=== PATIENT | male | born 1965 | race African-American/Black ===

== ENCOUNTER 2019-08-02 14:35 | Observation (INO) | payer OTHER ==
--- NOTE | 2019-08-02 16:51 | ER Document Report ---
ED Dizziness/Weakness - General Chief Complaint: Near Syncope Stated Complaint: POSSIBLE SYNCOPE Time Seen by Provider: 08/02/19 16:31 Primary Care Provider: JOSE ANGEL,ROGER [Primary Care Provider] - Follow up as needed Notes: Patient is a 54-year-old male with a history of A. fib/a flutter who presents to the emergency department with a chief complaint of syncope. Patient reports that he was headed to his doctor's appointment on Wednesday which was 2 days ago when he passed out. He states he did see his child welfare manager right afterwards who scheduled an outpatient cardioversion due to a flutter. He states yesterday at [facility] he had his cardioversion performed. Patient reports on the way home back to [place] he stopped at a gas station and had a syncopal episode with loss of consciousness. He states that the EMS did transport him to a hospital where he was seen and discharged. Patient reports they did decrease his metoprolol dosage which he did change today. Patient reports once he got home he had another syncopal episode with the loss of consciousness. Patient reports that he is unsure if he hit his head but he woke up on the floor. Patient is on Eliquis. Patient reports he is also having low back pain from his fall on Wednesday. Patient reports overall he has had some shortness of breath over the past few months. [facility] to be [facility]. Patient reports he does feel slightly winded when he walks. TRAVEL OUTSIDE OF THE [place] IN LAST 30 DAYS: No - Related Data Allergies/Adverse Reactions: No Known Allergies Allergy (Unverified 11/05/15 13:29) Past Medical History - General Information source: Patient - Social History Smoking Status: Never Smoker Frequency of alcohol use: None Drug Abuse: None Lives with: Family Family History: None Patient has suicidal ideation: No Patient has homicidal ideation: No - Past Medical History Cardiac Medical History: Reports: Hx Atrial Fibrillation, Hx Hypertension Denies: Hx Coronary Artery Disease, Hx Heart Attack Pulmonary Medical History: Reports: None Denies: Hx Asthma, Hx Bronchitis, Hx COPD, Hx Pneumonia EENT Medical History: Reports: None Neurological Medical History: Reports: None. Denies: Hx Cerebrovascular Accident, Hx Seizures Endocrine Medical History: Reports: None Renal/ Medical History: Reports: None Malignancy Medical History: Reports None GI Medical History: Reports: None Musculoskeletal Medical History: Reports None, Denies Hx Arthritis Skin Medical History: Reports None Psychiatric Medical History: Reports: None Traumatic Medical History: Reports: None Infectious Medical History: Reports: None Surgical Hx: Negative - Immunizations Hx Diphtheria, Pertussis, Tetanus Vaccination: No Review of Systems - Review of Systems Constitutional: No symptoms reported EENT: No symptoms reported Cardiovascular: See HPI Respiratory: See HPI Gastrointestinal: No symptoms reported Genitourinary: No symptoms reported Male Genitourinary: No symptoms reported Musculoskeletal: See HPI Skin: No symptoms reported Hematologic/Lymphatic: No symptoms reported Neurological/Psychological: No symptoms reported Physical Exam - Notes Notes: GENERAL: Well-appearing, well-nourished and in no acute distress. HEAD: Atraumatic, normocephalic. EYES: Pupils equal round and reactive to light, 4mm bilaterally, extraocular movements intact, sclera anicteric, conjunctiva are normal. ENT: TMs normal, nares patent, oropharynx clear without exudates. Moist mucous membranes. NECK: Normal range of motion, supple without lymphadenopathy or JVD. LUNGS: Breath sounds clear to auscultation bilaterally and equal. No wheezes rales or rhonchi. HEART: Irregular rhythm with controlled rate without murmurs, rubs or gallops. ABDOMEN: Soft, nontender, normoactive bowel sounds. No guarding, no rebound. No masses appreciated. BACK: No cervical, thoracic, midline tenderness. Patient does have lumbar midline tenderness with palpation. There is no ecchymosis or abrasions noted to the back. No saddle anesthesia, normal distal neurovascular exam. GENITOURINARY: Deferred. EXTREMITIES: Normal range of motion, no pitting or edema. No clubbing or cyanosis. NEUROLOGICAL: Cranial nerves II through XII grossly intact. Normal speech, normal gait. PSYCH: Normal mood, normal affect. SKIN: Warm, Dry, normal turgor, no rashes or lesions noted. Course - Re-evaluation Re-evalutation: 08/02/19 16:50 Patient's syncope and multiple falls over the past few days are quite concerning. Will obtain basic labs including a troponin. Will obtain a CT of the head as the patient did report multiple falls with a loss of consciousness and is on Eliquis. Plan is to admit the patient to the hospital for observation overnight due to the syncope. Patient heart rate in the 70s at this time. Patient is Sinus Rhythm on the monitor with PAC's. 08/02/19 17:22 Chest x-ray did show borderline cardiomegaly without evidence of failure, no effusion, no consolidation. X-ray of the lumbar spine negative for any acute fracture. Patient CT of the head was also negative. 08/02/19 18:06 Patient's troponin was essentially negative. Will admit the patient for multiple episodes of syncope with the loss of consciousness. 08/02/19 18:10 I did speak with ZAINA Peoples with our hospitalist group who would like to consult with [facility] as the patient states having his cardioversion there yesterday. I did speak with [facility] who will page the on- call child welfare manager for a consult. 08/02/19 18:[address] Mark with cardiology at [facility] to discuss patient case. He states that from my report patient could be admitted at [facility] over night for observation and then follow up with outpatient cardiology to wear a 30 day holter monitor. 18:[address] [facility] [address] Harpreet Mesa, who does agree to consult, and does agree that the patient should be observed over night. I spoke with Arian MAHAJAN, who states to call Dr. Wilburn at 1910 for admit as it is shift change. 08/02/19 19:04 Dr. Harpreet Mesa at the bedside with patient for evaluation - he is our injection molding engineer child welfare manager. 08/02/19 19:[address] speak with [address]. Emmett Wilburn, hospitalist who accepts admission. - Laboratory Result Diagrams: 08/02/19 15:40 08/02/19 15:40 Laboratory results interpreted by me: 08/02/19 08/02/19 15:40 15:40 Hgb 12.4 L Hct 36.5 L RDW 16.7 H Eos % (Auto) 7.8 H AST 80 H - Diagnostic Test Radiology reviewed: Reports reviewed Radiology results interpreted by me: 08/02/19 17:22 Chest X-Ray 08/02/19 16:33 IMPRESSION: Borderline cardiomegaly without pulmonary edema. Head CT 08/02/19 16:46 IMPRESSION: NORMAL BRAIN CT WITHOUT CONTRAST. EVIDENCE OF ACUTE STROKE: NO. Lumbar Spine X-Ray 01/08/20 16:46 IMPRESSION: NORMAL 5 VIEW LUMBAR SPINE. Discharge - Discharge Clinical Impression: Syncope Qualifiers: Syncope type: unspecified Qualified Code(s): R55 - Syncope and collapse Condition: Stable Disposition: ADMITTED OBSERVATION Unit Admitted: Telemetry [facility] [[facility] - Follow up as needed
--- NOTE | 2019-08-02 17:12 | RADIOLOGY REPORT (SQ) ---
EXAM DESCRIPTION: CT HEAD WITHOUT COMPLETED DATE/TIME: 08/02/2019 5:03 pm REASON FOR STUDY: syncope, fall, + LOC, on eliquis COMPARISON: None. TECHNIQUE: Axial images acquired through the brain without intravenous contrast. Images reviewed wi th bone, brain and subdural windows. Additional sagittal and coronal reconstructions were generated. Images stored on PACS. All CT scanners at this facility use dose modulation, iterative reconstruction, and/or weight based d osing when appropriate to reduce radiation dose to as low as reasonably achievable (ALARA). [facility]: Dose Right [facility]: CareDose [facility]: Dose Right [facility]: Teradose 4D [facility]: [employer] RADIATION DOSE: CT Rad equipment meets quality standard of care and radiation dose reduction techniq ues were employed. CTDIvol: 53.2 mGy. DLP: 991 mGy-cm. mGy. LIMITATIONS: None. FINDINGS: VENTRICLES: Normal size and contour. CEREBRUM: No masses. No hemorrhage. No midline shift. No evidence for acute infarction. Normal gra y/white matter differentiation. No areas of low density in the white matter. CEREBELLUM: No masses. No hemorrhage. No alteration of density. No evidence for acute infarction. EXTRAAXIAL SPACES: No fluid collections. No masses. ORBITS AND GLOBE: No intra- or extraconal masses. Normal contour of globe without masses. CALVARIUM: No fracture. PARANASAL SINUSES: No fluid or mucosal thickening. SOFT TISSUES: No mass or hematoma. OTHER: No other significant finding. IMPRESSION: NORMAL BRAIN CT WITHOUT CONTRAST. EVIDENCE OF ACUTE STROKE: NO. COMMENT: Quality ID # [id number]: Final reports with documentation of one or more dose reduction techniques (e.g., Automated exposure control, adjustment of the mA and/or kV according to patient size, use of iterative reconstruction technique) TECHNICAL DOCUMENTATION: JOB ID: [id number] [email or web address]- All Rights Reserved Reading location - IP/workstation name: [email or web address]
--- NOTE | 2019-08-02 17:13 | RADIOLOGY REPORT (SQ) ---
EXAM DESCRIPTION: CHEST 2 VIEWS COMPLETED DATE/TIME: 08/02/2019 5:01 pm REASON FOR STUDY: syncope COMPARISON: None. EXAM PARAMETERS: NUMBER OF VIEWS: two views TECHNIQUE: Digital Frontal and Lateral radiographic views of the chest acquired. RADIATION DOSE: NA LIMITATIONS: none FINDINGS: LUNGS AND PLEURA: No opacities, masses or pneumothorax. No pleural effusion. MEDIASTINUM AND HILAR STRUCTURES: No masses or contour abnormalities. HEART AND VASCULAR STRUCTURES: Heart size is borderline. There is no pulmonary edema. BONES: No acute findings. HARDWARE: None in the chest. OTHER: No other significant finding. IMPRESSION: Borderline cardiomegaly without pulmonary edema. TECHNICAL DOCUMENTATION: JOB ID: [id number] [email or web address]- All Rights Reserved Reading location - IP/workstation name: [email or web address]
--- NOTE | 2019-08-02 17:14 | RADIOLOGY REPORT (SQ) ---
EXAM DESCRIPTION: L SPINE WHOLE COMPLETED DATE/TIME: 08/02/2019 5:01 pm REASON FOR STUDY: syncope, fall, low back pain COMPARISON: None. NUMBER OF VIEWS: Five views including obliques. TECHNIQUE: AP, lateral, oblique, and sacral radiographic images acquired of the lumbar spine. LIMITATIONS: None. FINDINGS: MINERALIZATION: Normal. SEGMENTATION: Normal. No transitional anatomy. ALIGNMENT: Normal. VERTEBRAE: Maintained height. No fracture or worrisome bone lesion. DISCS: Preserved height. No significant osteophytes or end plate irregularity. POSTERIOR ELEMENTS: Pedicles and facets are intact. No pars defect or posterior arch defects. HARDWARE: None in the spine. PARASPINAL SOFT TISSUES: Normal. PELVIS: Intact as visualized. No fractures or worrisome bone lesions. SI joints intact. OTHER: No other significant finding. IMPRESSION: NORMAL 5 VIEW LUMBAR SPINE. TECHNICAL DOCUMENTATION: JOB ID: [id number] [employer]- All Rights Reserved Reading location - IP/workstation name: [email or web address]
[2019-08-02 17:41] LABS: ALBUMIN 3.9 g/dL (3.5-5.0); ALKALINE PHOSPHATASE 93 U/L (38-126); ANION GAP 8 (5-19); ASPARTATE AMINO TRANSFERASE 80 U/L (17-59); BILIRUBIN,DIRECT 0.4 mg/dL (0.0-0.4); BILIRUBIN,TOTAL 0.9 mg/dL (0.2-1.3); BLOOD UREA NITROGEN 16 mg/dL (7-20); CALCIUM 9.8 mg/dL (8.4-10.2); CARBON DIOXIDE 28 mmol/L (22-30); CHLORIDE 103 mmol/L (98-107); GLUCOSE 103 mg/dL (75-110); POTASSIUM 4.3 mmol/L (3.6-5.0); TOTAL PROTEIN 7.4 g/dL (6.3-8.2)
[2019-08-02 17:45] LABS: ABSOLUTE EOSINOPHILS # (AUTO) 0.6 10^3/uL (0.0-0.6); ABSOLUTE LYMPHOCYTES (AUTO) 2.5 10^3/uL (0.5-4.7); ABSOLUTE MONOCYTES (AUTO) 0.8 10^3/uL (0.1-1.4); ABSOLUTE NEUT (AUTO) 3.3 10^3/uL (1.7-8.2); BASOPHILS % (AUTO) 0.6 % (0-2); EOSINOPHILS % (AUTO) 7.8 % (0-6); HEMATOCRIT 36.5 % (37.9-51.0); HEMOGLOBIN 12.4 g/dL (13.5-17.0); LYMPHOCYTES % (AUTO) 34.7 % (13-45); MEAN CORPUSCULAR HGB CONC 33.9 g/dL (32.0-36.0); MEAN CORPUSCULAR VOLUME 80 fl (80-97); MONOCYTES % (AUTO) 10.6 % (3-13); PLATELET COUNT 287 10^3/uL (150-450); RED BLOOD COUNT 4.58 10^6/uL (4.35-5.55); RED CELL DISTRIBUTION WIDTH 16.7 % (11.5-14.0); SEGMENTED NEUTROPHILS % (AUTO) 46.3 % (42-78); TOTAL CELLS COUNTED % (AUTO) 100 %; WHITE BLOOD COUNT 7.2 10^3/uL (4.0-10.5)
--- NOTE | 2019-08-02 19:26 | PDOC CONSULTATION ---
Consultation Consult Date: 08/02/19 Provider Consulted: KELL FAITH Consult reason:: Syncope History of Present Illness Admission Date/PCP: [facility] Patient complains of: Syncope History of Present Illness: [facility] is a 54 year old male With medical history significant for atrial fibrillation. Patient reports that he had syncope on 07/31/2019. On 08/01/2019 patient had outpatient cardioversion at [facility]. He was discharged from the hospital. On his way back home when he was at a gas station with a friend he had another episode of syncope. He was transported to a different hospital. Evaluation there and tests were unremarkable and patient was discharged home. When he got back home patient had yet another episode of syncope. No trauma is reported. No residual effects were noted. Patient did not have any preceding symptoms. There is no report of chest fluttering chest pain or palpitation. Patient was evaluated in [facility] emergency room and appears to be doing well and is back to his usual self. There is no report of chest pain palpitations or dyspnea. Because of recurrent episodes of syncope cardiology opinion is requested and it is expected that patient will be observed overnight. Contact has been made with the system administrator at [facility] as well. Past Medical History Cardiac Medical History: Reports: Atrial Fibrillation, Hypertension Denies: Coronary Artery Disease, Myocardial Infarction Pulmonary Medical History: Reports: None Denies: Asthma, Bronchitis, Chronic Obstructive Pulmonary Disease (COPD), Pneumonia EENT Medical History: Reports: None Neurological Medical History: Reports: None Denies: Seizures Endocrine Medical History: Reports: None Renal/ Medical History: Reports: None Malignancy Medical History: Reports: None GI Medical History: Reports: None Musculoskeltal Medical History: Reports: None Denies: Arthritis Skin Medical History: Reports: None Psychiatric Medical History: Reports: None Traumatic Medical History: Reports: None Hematology: Denies: Anemia Infectious Medical History: Reports: None Social History Lives with: Family Smoking Status: Never Smoker Family History Family History: None, Reviewed & Not Pertinent Parental Family History Reviewed: No Children Family History Reviewed: NA Sibling(s) Family History Reviewed.: NA Medication/Allergy Home Medications: Amlodipine Besylate 5 mg PO Q12H 11/05/15 Hydralazine HCl [Apresoline 10 mg Tablet] 10 mg PO DAILY 11/05/15 Allergies/Adverse Reactions: No Known Allergies Allergy (Unverified 11/05/15 13:29) Review of Systems Cardiovascular: PRESENT: as per HPI Neurological: PRESENT: as per HPI, syncope Physical Exam Vital Signs: Intake & Output 08/01/19 08/02/19 08/03/19 06:59 06:59 06:59 Weight 98.7 kg General appearance: PRESENT: no acute distress, cooperative, well-developed Head exam: PRESENT: atraumatic, normocephalic Eye exam: PRESENT: EOMI Mouth exam: PRESENT: moist Respiratory exam: PRESENT: clear to auscultation [place], symmetrical, unlabored Cardiovascular exam: PRESENT: RRR, +S1, +S2 Pulses: PRESENT: normal radial pulses GI/Abdominal exam: PRESENT: soft Rectal exam: PRESENT: deferred Neurological exam: PRESENT: alert, awake, oriented to person, oriented to place, oriented to time, oriented to situation, CN II-XII grossly intact Psychiatric exam: PRESENT: appropriate affect Skin exam: PRESENT: dry, intact, normal color Results Laboratory Results: 08/02/19 15:40 08/02/19 15:40 08/02/19 08/02/19 15:40 15:40 WBC 7.2 RBC 4.58 Hgb 12.4 L Hct 36.5 L MCV 80 MCH 27.0 MCHC 33.9 RDW 16.7 H Plt Count 287 Seg Neutrophils % 46.3 Sodium 138.5 Potassium 4.3 Chloride 103 Carbon Dioxide 28 Anion Gap 8 BUN 16 Creatinine 1.09 Est GFR ( Amer) > 60 Glucose 103 Calcium 9.8 Total Bilirubin 0.9 AST 80 H Alkaline Phosphatase 93 Total Protein 7.4 Albumin 3.9 08/02/19 15:40 Troponin I 0.019 EKG Comments: Twelve-lead EKG was reviewed. There are some but sinus beats but there are also PACs with multiple P wave morphologies indicating a wandering atrial rhythm. Normal AV conduction, QTC is 485 ms. Telemetry shows sinus rhythm with PACs at approximately 80 bpm. Impressions: Chest X-Ray 08/02/19 16:33 IMPRESSION: Borderline cardiomegaly without pulmonary edema. Head CT 08/02/19 16:46 IMPRESSION: NORMAL BRAIN CT WITHOUT CONTRAST. EVIDENCE OF ACUTE STROKE: NO. Lumbar Spine X-Ray 08/02/19 16:46 IMPRESSION: NORMAL 5 VIEW LUMBAR SPINE. Status: Image reviewed by me Assessment & Plan - Diagnosis (1) Atrial fibrillation Plan: Patient is status post direct-current cardioversion yesterday. Presently maintaining sinus rhythm with PACs. Given recurrent episodes of syncope it would be reasonable to observe the patient on telemetry for the next 24 hours. Contact has been made with patient's system administrator and the plan is for a 30-day event monitor which is reasonable. Continue systemic anticoagulation with apixaban Continue metoprolol. Watch blood pressure (2) Syncope Qualifiers: Syncope type: unspecified Qualified Code(s): R55 - Syncope and collapse Plan: I will be reasonable to monitor the patient on telemetry for at least 24 hours to exclude an arrhythmic cause for syncope. Patient is status post cardioversion and is maintaining sinus rhythm with PACs. Continue systemic anticoagulation. 30-day event monitor is being planned by patient's system administrator
[2019-08-02] MEDS ORDERED: MORPHINE SULFATE 10 MG/ML INJ IV PRN ×3 (19:42)
[2019-08-02] MEDS ORDERED: MAGNESIUM HYDROXIDE SUSP 30 ML UDCUP PO PRN (19:42)
[2019-08-02] MEDS ORDERED: ACETAMINOPHEN 325 MG TABLET PO PRN (19:42)
[2019-08-02] MEDS ORDERED: MAG HYDROX/AL HYDROX/SIMETH SUSP 30 ML UDCUP PO PRN (19:42)
[2019-08-02] MEDS ORDERED: HYDRALAZINE HCL INJ/PF 20 MG/1 ML SDV IV PRN (19:42)
[2019-08-02] MEDS ORDERED: LORAZEPAM INJ 2 MG/1 ML VIAL IV PRN (19:43)
[2019-08-02] MEDS ORDERED: PROMETHAZINE HCL INJ 25 MG/1 ML VIAL IV PRN (19:44)
[2019-08-02 21:55] LABS: CREATINE KINASE MB 0.73 ng/mL (<4.55); TROPONIN I 0.024 ng/mL
[2019-08-02 22:00] LABS: FREE T3 3.75 pg/mL (2.77-5.27); FREE T4 (FREE THYROXINE) 1.38 ng/dL (0.78-2.19)
[2019-08-02] MEDS: APIXABAN 5 MG TABLET PO SCH (22:05)
[2019-08-02] MEDS: FAMOTIDINE 20 MG TABLET PO SCH (22:05)
--- NOTE | 2019-08-03 00:33 | PDOC H&P ---
History of Present Illness Admission Date/PCP: 08/02/2019 19:18 [facility] Patient complains of: Syncopal episodes History of Present Illness: VA ROYAL is a 54 year old male who presented emergency room with a history of 3 acute syncopal episodes occurring over the 2 days prior to this vis it. 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 He admits having been treated yesterday in [place] at [facility] where he received cardioversion for atrial flutter and then a short while after being discharged suffered a syncopal episode with loss of consciousness. EMS returned him to the [facility] emergency room and he was evaluated and subsequently discharged. After his arrival home he had another episode of syncope resulting in loss of consciousness and a fall to the floor for an unknown period of time. The patient's metoprolol dosage was decreased at the time of his visit to the [facility] emergency room and he has continued to take Eliquis. He denies all associated or accompanying acute signs and symptoms but does admit to chronic dyspnea on exertion. He denies prior similar episodes. He has not identified any additional aggravating or ameliorating factors for his acute syncopal episodes. In the emergency room he was found to have an unremarkable evaluation but was admitted to observation status at the recommendation of cardiology after being seen in consult by Dr. Mesa. Past Medical History Cardiac Medical History: Reports: Atrial Fibrillation, Hypertension Denies: Congestive Heart Failure, Coronary Artery Disease, Myocardial Infarction, Hyperlipidema Pulmonary Medical History: Reports: None Denies: Asthma, Bronchitis, Chronic Obstructive Pulmonary Disease (COPD), Pneumonia EENT Medical History: Denies: Cataracts, Ears - Hearing aids Neurological Medical History: Denies: Hemorrhagic CVA, Ischemic CVA, Seizures Endocrine Medical History: Denies: Diabetes Mellitus Type 1, Diabetes Mellitus Type 2, Hyperthyroidism, Hypothyroidism, Obesity Renal/ Medical History: Denies: Chronic Kidney Disease, Nephrolithiasis Malignancy Medical History: Reports: None GI Medical History: Denies: Cirrhosis, Crohn's Disease, Gastroesophageal Reflux Disease, Hepatit is, Peptic Ulcer Disease, Ulcerative Colitis Musculoskeltal Medical History: Denies: Arthritis, Gout Skin Medical History: Denies: Eczema, Psoriasis Psychiatric Medical History: Reports: Alcohol Dependency Denies: Substance Abuse, Tobacco Dependency Traumatic Medical History: Reports: None Hematology: Denies: Anemia, Bleeding Tendencies Infectious Medical History: Reports: None Past Surgical History Past Surgical History: Reports: Other - Colonoscopy Social History Information Source: Patient Lives with: Family Smoking Status: Never Smoker Electronic Cigarette use?: No Frequency of Alcohol Use: None - Stopped drinking in October 2018 prior to that time was consuming 1/2 gallon of hard liquor daily Hx Recreational Drug Use: No Drugs: None Hx Prescription Drug Abuse: No - Advance Directive Resuscitation Status: Full Code Surrogate healthcare decision maker:: Lise Chinmay Family History Family History: Malignancy - Breast cancer: Mother. denies: CAD, DM, Hypertension Parental Family History Reviewed: Yes Children Family History Reviewed: No Sibling(s) Family History Reviewed.: Yes Medication/Allergy Allergies/Adverse Reactions: No Known Allergies Allergy (Unverified 11/05/15 13:29) Review of Systems Constitutional: ABSENT: chills, fever(s) Eyes: ABSENT: visual disturbances, other - Eye pain Ears: ABSENT: hearing changes, other - Ear pain Nose, Mouth, and Throat: ABSENT: headache(s), mouth pain, sore throat Cardiovascular: PRESENT: as per HPI, dyspnea on exertion. ABSENT: chest pain, palpitations Respiratory: ABSENT: cough, dyspnea Gastrointestinal: ABSENT: abdominal pain, constipation, diarrhea, nausea, vomiting Genitourinary: ABSENT: dysuria, hematuria Musculoskeletal: ABSENT: back pain, joint swelling, muscle weakness Integumentary: ABSENT: pruritus, rash Neurological: PRESENT: as per HPI, syncope. ABSENT: confusion, convulsions, focal weakness, memory loss Psychiatric: ABSENT: anxiety, depression Endocrine: ABSENT: cold intolerance, heat intolerance, polydipsia, polyuria Hematologic/Lymphatic: ABSENT: easy bleeding, easy bruising Allergic/Immunologic: ABSENT: seasonal rhinorrhea Physical Exam Vital Signs: Intake & Output 07/31/19 08/01/19 08/02/19 23:59 23:59 23:59 Weight 98.7 kg General appearance: PRESENT: no acute distress, cooperative Head exam: PRESENT: atraumatic, normocephalic Eye exam: PRESENT: conjunctiva pink. ABSENT: conjunctival injection, scleral icterus Ear exam: PRESENT: normal external ear exam. ABSENT: bleeding, drainage Mouth exam: PRESENT: dry mucosa, neck supple Neck exam: ABSENT: thyromegaly, tracheal deviation Respiratory exam: PRESENT: clear to auscultation [place], symmetrical, unlabored Cardiovascular exam: PRESENT: RRR - Frequent irregular beats. ABSENT: clicks, gallop, rubs Pulses: PRESENT: normal radial pulses, normal dorsalis pedis pul Vascular exam: PRESENT: normal capillary refill. ABSENT: pallor GI/Abdominal exam: PRESENT: normal bowel sounds, soft Rectal exam: PRESENT: deferred Extremities exam: ABSENT: joint swelling, pedal edema Musculoskeletal exam: ABSENT: deformity, dislocation Neurological exam: PRESENT: alert, oriented to person, oriented to place, oriented to time, oriented to situation, CN II-XII grossly intact. ABSENT: motor sensory deficit Psychiatric exam: PRESENT: appropriate affect, normal mood Skin exam: PRESENT: dry, intact, warm. ABSENT: jaundice, rash, urticaria Results Laboratory Results: 08/02/19 15:40 08/02/19 15:40 08/02/19 08/02/19 15:40 15:40 WBC 7.2 RBC 4.58 Hgb 12.4 L Hct 36.5 L MCV 80 MCH 27.0 MCHC 33.9 RDW 16.7 H Plt Count 287 Seg Neutrophils % 46.3 Sodium 138.5 Potassium 4.3 Chloride 103 Carbon Dioxide 28 Anion Gap 8 BUN 16 Creatinine 1.09 Est GFR ( Amer) > 60 Glucose 103 Calcium 9.8 Total Bilirubin 0.9 AST 80 H Alkaline Phosphatase 93 Total Protein 7.4 Albumin 3.9 08/02/19 15:40 Troponin I 0.019 Impressions: Chest X-Ray 08/02/19 16:33 IMPRESSION: Borderline cardiomegaly without pulmonary edema. Head CT 08/02/19 16:46 IMPRESSION: NORMAL BRAIN CT WITHOUT CONTRAST. EVIDENCE OF ACUTE STROKE: NO. Lumbar Spine X-Ray 08/02/19 16:46 IMPRESSION: NORMAL 5 VIEW LUMBAR SPINE. Assessment and Plan - Diagnosis (1) Syncope Qualifiers: Syncope type: unspecified Qualified Code(s): R55 - Syncope and collapse Is this a current diagnosis for this admission?: Yes (2) Atrial fibrillation Qualifiers: Atrial fibrillation type: unspecified chronic Qualified Code(s): I48.20 - Chronic atrial fibrillation, unspecified; I48.2 - Chronic atrial fibrillation Is this a current diagnosis for this admission?: Yes (3) Hypertension Qualifiers: Hypertension type: essential hypertension Qualified Code(s): I10 - Essential (primary) hypertension Is this a current diagnosis for this admission?: Yes (4) Chronic anticoagulation Is this a current diagnosis for this admission?: Yes (5) Alcoholism in recovery Is this a current diagnosis for this admission?: Yes - Plan Summary Summary: Patient is admitted to a telemetry bed where he will receive routine supportive and symptomatic cares. He will be monitored closely for arrhythmias or changes in his vital signs or additional syncopal episodes. He is seen in consultation by Dr. Mesa for cardiology. Plans to arrange for a 30-day cardiac event monitor are being made with his refuse laborer at [facility]. Patient will be continued on his usual medications for his chronic medical problems as appropriate. Serial cardiac enzymes will be obtained. Patient will use morphine sulfate 2 to 4 mg IV every 2 hours on a as needed basis as needed for pain. Patient will use Ativan 1 mg IV every 4 hours on an as-needed basis for anxiety or restlessness. - Time Time Spent with patient: 25-34 minutes Medications reviewed and adjusted accordingly: Yes Anticipated discharge: Home Within: within 36 hours - Inpatient Certification Based on my medical assessment, after consideration of the patient's comorbiditi es, presenting symptoms, or acuity I expect that the services needed warrant INPATIENT care.: No I certify that my determination is in accordance with my understanding of [facility]'s requirements for reasonable and necessary INPATIENT services [42 CFR 412.3e].: No Medical Necessity: Need For Continuous Telemetry Monitoring
[2019-08-03 03:06] LABS: HEMATOCRIT 35.7 % (37.9-51.0); HEMOGLOBIN 12.3 g/dL (13.5-17.0); MEAN CORPUSCULAR HEMOGLOBIN 26.9 pg (27.0-33.4); MEAN CORPUSCULAR HGB CONC 34.5 g/dL (32.0-36.0); MEAN CORPUSCULAR VOLUME 78 fl (80-97); PLATELET COUNT 272 10^3/uL (150-450); RED BLOOD COUNT 4.59 10^6/uL (4.35-5.55); RED CELL DISTRIBUTION WIDTH 16.3 % (11.5-14.0); WHITE BLOOD COUNT 10.4 10^3/uL (4.0-10.5)
[2019-08-03 03:28] LABS: ANION GAP 9 (5-19); BLOOD UREA NITROGEN 11 mg/dL (7-20); CALCIUM 9.4 mg/dL (8.4-10.2); CARBON DIOXIDE 23 mmol/L (22-30); CHLORIDE 107 mmol/L (98-107); CREATINE KINASE 467 U/L (55-170); GLUCOSE 104 mg/dL (75-110); POTASSIUM 3.9 mmol/L (3.6-5.0)
[2019-08-03 03:33] LABS: CREATINE KINASE MB 0.58 ng/mL (<4.55); TROPONIN I 0.028 ng/mL
[2019-08-03] MEDS ORDERED: INFLUENZA QUAD (6MOS+) 2019-20 VAC 0.5 ML SYR IM ONE (04:48)
[2019-08-03] MEDS: APIXABAN 5 MG TABLET PO SCH (09:16)
[2019-08-03] MEDS: FAMOTIDINE 20 MG TABLET PO SCH (09:19)
--- NOTE | 2019-08-03 09:35 | EKG REPORT ---
SEVERITY:- ABNORMAL ECG - SINUS RHYTHM, FREQUENT APCs PROBABLE LEFT ATRIAL ABNORMALITY BORDERLINE PROLONGED QT INTERVAL : Confirmed by: Mick Alvarado 03-Aug-2019 09:35:03
[2019-08-03] MEDS ORDERED: DOCUSATE SODIUM 100 MG CAPSULE PO SCH (10:00)
[2019-08-03 10:33] LABS: CREATINE KINASE MB 0.7 ng/mL (<4.55); TROPONIN I 0.033 ng/mL
[2019-08-03 12:50] VITALS: BP 141/88
--- NOTE | 2019-08-04 12:12 | PDOC DISCHARGE SUMMARY ---
Impression - Admit/DC Date/PCP Admission Date/Primary Care Provider: 08/02/19 19:45 [facility] Discharge Date: 08/03/19 - Discharge Diagnosis (1) Alcoholism in recovery Is this a current diagnosis for this admission?: Yes (2) Atrial fibrillation Is this a current diagnosis for this admission?: Yes (3) Chronic anticoagulation Is this a current diagnosis for this admission?: Yes (4) Hypertension Is this a current diagnosis for this admission?: Yes (5) Syncope Is this a current diagnosis for this admission?: Yes - Additional Information Resuscitation Status: Full Code Discharge Diet: Cardiac Discharge Activity: Activity As Tolerated, Balance Activity w/Rest, Slowly Increase Activity Referrals: [facility] [Primary Care [facility]] - Follow up as needed Home Medications: Acetaminophen [Tylenol 325 mg Tablet] 650 mg PO Q4HP PRN tablet 08/03/19 Apixaban [Eliquis 5 mg Tablet] 5 mg PO Q12 08/03/19 Cetirizine HCl [Zyrtec 10 mg Tablet] 10 mg PO DAILYP PRN 08/03/19 Cholecalciferol (Vitamin D3) [Vitamin D3 1000 Unit Tablet] 2,000 mg PO DAILY 08/03/19 Docusate Sodium [Colace 100 mg Capsule] 100 mg PO BID capsule 08/03/19 Gabapentin [Neurontin 300 mg Capsule] 300 mg PO Q8 08/03/19 Metoprolol Tartrate [Lopressor 100 mg Tablet] 100 mg PO Q12 08/03/19 Naltrexone Microspheres [Vivitrol] 380 mg IM .QMONTHLY 08/03/19 Sildenafil Citrate [Viagra] 100 mg PO ASDIR PRN 08/03/19 Tamsulosin HCl [Flomax 0.4 mg Cap.sr] 0.4 mg PO DAILY 08/03/19 History of Present Illiness History of Present Illness: Per H&P by Dr. Wilburn: VA ROYAL is a 54 year old male who presented emergency room with a history of 3 acute syncopal episodes occurring over the 2 days prior to this visit. 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 He admits having been treated yesterday in [place] at [facility] where he received cardioversion for atrial flutter and then a short while after being discharged suffered a syncopal episode with loss of consciousness. EMS returned him to the [facility] emergency room and he was evaluated and subsequently discharged. After his arrival home he had another episode of syncope resulting in loss of consciousness and a fall to the floor for an unknown period of time. The patient's metoprolol dosage was decreased at the time of his visit to the [facility] emergency room and he has continued to take Eliquis. He denies all associated or accompanying acute signs and symptoms but does admit to chronic dyspnea on exertion. He denies prior similar episodes. He has not identified any additional aggravating or ameliorating factors for his acute syncopal episodes. In the emergency room he was found to have an unremarkable evaluation but was admitted to observation status at the recommendation of cardiology after being seen in consult by Dr. Mesa. Hospital Course Hospital Course: The patient was admitted to the medical floor on continuous cardiac telemetry. He was noted to be in Sinus arrythmia but without frequent PVCs or PACs. The patient remained asymptomatic overnight. Orthostatic blood pressures were negative. Cardiology was consulted at time of admission and recommended continuing the patient's home dose metoprolol and Eliquis, along with overnight monitoring on telemetry. Patient is to follow up with his primary breakfast manager upon discharge to make arrangements for a [address] monitor. Head CT was benign and laboratory evaluation was unremarkable with nml CBC, chemistry, TSH, and indeterminate but stable troponins. At time of discharge, patient is in stable condition and ambulatory without symptoms. He is instructed to follow up with his PCP within 1 week and to notify his breakfast manager of his admission; follow up as directed. Strongly recommend that he have a 30 day event monitor. Due to the patients job, he is encouraged to stay our of work until his follow up appointment with either his PCP or [employer]apper [employer]. He is encouraged to eat a heart healthy diet, drink plenty of fluids, and to change positions slowly. He is instructed to return to the emergency department as needed for concerning symptoms. Physical Exam Vital Signs: Temp Pulse Resp BP Pulse Ox 98.6 F 84 18 141/88 H 99 08/03/19 12:44 08/03/19 12:44 08/03/19 12:44 08/03/19 12:44 08/03/19 12:44 Intake & Output 08/03/19 08/04/19 08/05/19 06:59 06:59 06:59 Intake Total 440 Balance 440 Weight 97.7 kg General appearance: PRESENT: no acute distress, cooperative, well-developed, well-nourished - overweight Head exam: PRESENT: atraumatic, normocephalic Eye exam: PRESENT: conjunctiva pink, EOMI, PERRLA. ABSENT: scleral icterus Ear exam: PRESENT: normal external ear exam Mouth exam: PRESENT: moist, tongue midline Neck exam: ABSENT: carotid bruit, JVD, lymphadenopathy, thyromegaly Respiratory exam: PRESENT: clear to auscultation [place]. ABSENT: rales, rhonchi, wheezes Cardiovascular exam: PRESENT: RRR - Sinus arrythmia. ABSENT: diastolic murmur, rubs, systolic murmur Pulses: PRESENT: normal dorsalis pedis pul Vascular exam: PRESENT: normal capillary refill GI/Abdominal exam: PRESENT: normal bowel sounds, soft. ABSENT: distended, guarding, mass, organolmegaly, rebound, tenderness Rectal exam: PRESENT: deferred Extremities exam: PRESENT: full ROM. ABSENT: calf tenderness, clubbing, pedal edema Musculoskeletal exam: PRESENT: ambulatory Neurological exam: PRESENT: alert, awake, oriented to person, oriented to place, oriented to time, oriented to situation, CN II-XII grossly intact. ABSENT: motor sensory deficit Psychiatric exam: PRESENT: appropriate affect, normal mood. ABSENT: homicidal ideation, suicidal ideation Skin exam: PRESENT: dry, intact, warm. ABSENT: cyanosis, rash Results Laboratory Results: WBC 10.4 10^3/uL (4.0-10.5) 08/03/19 02:56 RBC 4.59 10^6/uL (4.35-5.55) 08/03/19 02:56 Hgb 12.3 g/dL (13.5-17.0) L 08/03/19 02:56 Hct 35.7 % (37.9-51.0) L 08/03/19 02:56 MCV 78 fl (80-97) L 08/03/19 02:56 MCH 26.9 pg (27.0-33.4) L 08/03/19 02:56 MCHC 34.5 g/dL (32.0-36.0) 08/03/19 02:56 RDW 16.3 % (11.5-14.0) H 08/03/19 02:56 Plt Count 272 10^3/uL (150-450) 08/03/19 02:56 Lymph % (Auto) 34.7 % (13-45) 08/02/19 15:40 Gove % (Auto) 10.6 % (3-13) 08/02/19 15:40 Eos % (Auto) 7.8 % (0-6) H 08/02/19 15:40 Baso % (Auto) 0.6 % (0-2) 08/02/19 15:40 Absolute Neuts (auto) 3.3 10^3/uL (1.7-8.2) 08/02/19 15:40 Absolute Lymphs (auto) 2.5 10^3/uL (0.5-4.7) 08/02/19 15:40 Absolute Monos (auto) 0.8 10^3/uL (0.1-1.4) 08/02/19 15:40 Absolute Eos (auto) 0.6 10^3/uL (0.0-0.6) 08/02/19 15:40 Absolute Basos (auto) 0.0 10^3/uL (0.0-0.2) 08/02/19 15:40 Seg Neutrophils % 46.3 % (42-78) 08/02/19 15:40 Sodium 138.9 mmol/L (137-145) 08/03/19 02:56 Potassium 3.9 mmol/L (3.6-5.0) 08/03/19 02:56 Chloride 107 mmol/L (98-107) 08/03/19 02:56 Carbon Dioxide 23 mmol/L (22-30) 08/03/19 02:56 Anion Gap 9 (5-19) 08/03/19 02:56 BUN 11 mg/dL (7-20) 08/03/19 02:56 Creatinine 0.86 mg/dL (0.52-1.25) 08/03/19 02:56 Est GFR ( Amer) > 60 (>60) 08/03/19 02:56 Est GFR (MDRD) Non-Af > 60 (>60) 08/03/19 02:56 Glucose 104 mg/dL (75-110) 08/03/19 02:56 Calcium 9.4 mg/dL (8.4-10.2) 08/03/19 02:56 Magnesium 1.7 mg/dL (1.6-2.3) 08/03/19 02:56 Total Bilirubin 0.9 mg/dL (0.2-1.3) 08/02/19 15:40 Direct Bilirubin 0.4 mg/dL (0.0-0.4) 08/02/19 15:40 Neonat Total Bilirubin Not Reportable 08/02/19 15:40 Neonat Direct Bilirubin Not Reportable 08/02/19 15:40 Neonat Indirect Bili Not Reportable 08/02/19 15:40 AST 80 U/L (17-59) H 08/02/19 15:40 ALT 66 U/L (<50) 08/02/19 15:40 Alkaline Phosphatase 93 U/L (38-126) 08/02/19 15:40 Creatine Kinase 404 U/L (55-170) H 08/03/19 09:23 CK-MB (CK-2) 0.70 ng/mL (<4.55) 08/03/19 09:23 Troponin I 0.033 ng/mL 08/03/19 09:23 Total Protein 7.4 g/dL (6.3-8.2) 08/02/19 15:40 Albumin 3.9 g/dL (3.5-5.0) 08/02/19 15:40 TSH 0.81 uIU/mL (0.47-4.68) 08/03/19 02:56 Free T4 1.38 ng/dL (0.78-2.19) 08/02/19 21:04 Free T3 pg/mL 3.75 pg/mL (2.77-5.27) 08/02/19 21:04 08/02/19 08/02/19 08/03/19 15:40 21:04 02:56 CK-MB (CK-2) 0.73 0.58 Troponin I 0.019 0.024 0.028 08/03/19 09:23 CK-MB (CK-2) 0.70 Troponin I 0.033 Impressions: Chest X-Ray 08/02/19 16:33 IMPRESSION: Borderline cardiomegaly without pulmonary edema. Head CT 08/02/19 16:46 IMPRESSION: NORMAL BRAIN CT WITHOUT CONTRAST. EVIDENCE OF ACUTE STROKE: NO. Lumbar Spine X-Ray 08/02/19 16:46 IMPRESSION: NORMAL 5 VIEW LUMBAR SPINE. Plan Plan of Treatment: Patient is discharged to home in stable condition. He is instructed to follow up with primary care provider within 1 week and to notify his breakfast manager of his admission and to follow up as directed. We strongly recommend a 30-Day outpatient event (cardiac) monitor. Continue medications as prescribed. Change positions slowly. Return to the emergency department as needed for concerning symptoms. Time Spent: Greater than 30 Minutes Stroke Is this a Stroke Patient?: No Acute Heart Failure - Is this a Heart Failure Patient?: No
== END 2019-08-03 14:05 | disposition home or self-care (01) ==
LOC: ER 14:35 → EH 19:45 → 3W 08-03 03:57
PROVIDERS: ADMIT Emergency Medicine; ATTEND Emergency Medicine
DX: R55 Syncope and collapse (principal); F10.21 Alcohol dependence, in remission; I48.20 Chronic atrial fibrillation, unspecified; I10 Essential (primary) hypertension; I49.1 Atrial premature depolarization; R06.09 Other forms of dyspnea; M54.5 Low back pain; W19.XXXA Unspecified fall, initial encounter; Z79.899 Other long term (current) drug therapy; Z79.01 Long term (current) use of anticoagulants; Z91.81 History of falling; Z23 Encounter for immunization
CPT/HCPCS: 93005; 99285; 96374; 36415 ×2; 84439; 82553 ×2; 82550 ×2; 83735 ×2; 84443; 85025; 85027; 80048; 80053; 84484 ×2; 84481; 71046; 72110; 70450; 90686; 93010; G0378 ×3; J0360; J3490 ×2

== ENCOUNTER 2019-08-11 11:24 | Inpatient (IN) | payer OTHER ==
[2019-08-11] MEDS ORDERED: DILTIAZEM HCL INJ 25 MG/5 ML VIAL IV ONE (11:44)
[2019-08-11] MEDS ORDERED: DILTIAZEM HCL/D5W 125 MG/125 ML RTUINJ IV PRN (12:12)
[2019-08-11] MEDS ORDERED: NORMAL SALINE 1000 ML 1,000 ML IV ONE (12:12)
[2019-08-11 12:13] LABS: ABSOLUTE EOSINOPHILS # (AUTO) 0.8 10^3/uL (0.0-0.6); ABSOLUTE LYMPHOCYTES (AUTO) 1.6 10^3/uL (0.5-4.7); ABSOLUTE MONOCYTES (AUTO) 0.7 10^3/uL (0.1-1.4); ABSOLUTE NEUT (AUTO) 4.7 10^3/uL (1.7-8.2); BASOPHILS % (AUTO) 0.5 % (0-2); EOSINOPHILS % (AUTO) 10.3 % (0-6); HEMATOCRIT 41.8 % (37.9-51.0); HEMOGLOBIN 14.4 g/dL (13.5-17.0); LYMPHOCYTES % (AUTO) 20.8 % (13-45); MEAN CORPUSCULAR HEMOGLOBIN 27.1 pg (27.0-33.4); MEAN CORPUSCULAR HGB CONC 34.4 g/dL (32.0-36.0); MEAN CORPUSCULAR VOLUME 79 fl (80-97); MONOCYTES % (AUTO) 8.6 % (3-13); PLATELET COUNT 420 10^3/uL (150-450); RED BLOOD COUNT 5.31 10^6/uL (4.35-5.55); RED CELL DISTRIBUTION WIDTH 16.1 % (11.5-14.0); SEGMENTED NEUTROPHILS % (AUTO) 59.8 % (42-78); TOTAL CELLS COUNTED % (AUTO) 100 %; WHITE BLOOD COUNT 7.9 10^3/uL (4.0-10.5)
[2019-08-11 12:25] LABS: CREATINE KINASE MB 0.65 ng/mL (<4.55); TROPONIN I < 0.012 ng/mL
[2019-08-11 12:29] LABS: ALBUMIN 4.5 g/dL (3.5-5.0); ALKALINE PHOSPHATASE 90 U/L (38-126); ANION GAP 8 (5-19); ASPARTATE AMINO TRANSFERASE 27 U/L (17-59); BILIRUBIN,DIRECT 0.2 mg/dL (0.0-0.4); BILIRUBIN,TOTAL 0.6 mg/dL (0.2-1.3); BLOOD UREA NITROGEN 17 mg/dL (7-20); CARBON DIOXIDE 31 mmol/L (22-30); CHLORIDE 99 mmol/L (98-107); CREATINE KINASE 57 U/L (55-170); GLUCOSE 99 mg/dL (75-110); POTASSIUM 4.3 mmol/L (3.6-5.0); TOTAL PROTEIN 8.1 g/dL (6.3-8.2)
[2019-08-11] MEDS ORDERED: ESMOLOL HCL INJ/PF 100 MG/10 ML SDV IV ONE ×2 (15:00→16:45)
[2019-08-11] MEDS: ESMOLOL HCL/SOD CL 2,500 MG/250 ML RTUINJ IV PRN ×2 (16:21→19:02)
--- NOTE | 2019-08-11 16:40 | ER Document Report ---
ED Cardiac - General Chief Complaint: Palpitations Stated Complaint: HEART RATE Time Seen by Provider: 08/11/19 11:44 [facility] Care Provider[facility] [[facility]] - Follow up as needed Information source: Patient TRAVEL OUTSIDE OF THE [place] IN LAST 30 DAYS: No - HPI Patient complains to provider of: Palpitations Quality of pain: None Pain level currently: Denies Similar symptoms previously: Yes Notes: 54-year-old male with a history of a flutter presents complaining of rapid heart rate x2 days. Patient states he is seen by Dr. Faith with cardiology and takes metoprolol 100 mg every 12 hours. Patient states he has been compliant with his medication patient denies shortness of breath or chest pain. Patient states nothing makes symptoms better, nothing seems to worsen symptoms either. Patient denies fever chills, cough. - Related Data Allergies/Adverse Reactions: No Known Allergies Allergy (Unverified 11/05/15 13:29) Past Medical History - General Information source: Patient - Social History Smoking Status: Unknown if Ever Smoked Family History: Malignancy - Breast cancer: Mother. denies: CAD, DM, Hypertension Patient has suicidal ideation: No Patient has homicidal ideation: No - Past Medical History Cardiac Medical History: Reports: Hx Atrial Fibrillation, Hx Hypertension Denies: Hx Congestive Heart Failure, Hx Coronary Artery Disease, Hx Heart Attack, Hx Hypercholesterolemia Pulmonary Medical History: Denies: Hx Asthma, Hx Bronchitis, Hx COPD, Hx Pneumonia Neurological Medical History: Denies: Hx Cerebrovascular Accident, Hx Seizures Endocrine Medical History: Denies: Hx Diabetes Mellitus Type 1, Hx Diabetes Mellitus Type 2, Hx Hyperthyroidism, Hx Hypothyroidism GI Medical History: Denies: Hx Cirrhosis, Hx Crohn's Disease, Hx Gastroesophag eal Reflux Disease, Hx Hepatitis, Hx Ulcerative Colitis Musculoskeletal Medical History: Denies Hx Arthritis, Denies Hx Gout Skin Medical History: Denies Hx Eczema, Denies Hx Psoriasis Infectious Medical History: Denies: Hx Hepatitis Past Surgical History: Reports: Other - Colonoscopy - Immunizations Hx Diphtheria, Pertussis, Tetanus Vaccination: No Hx Pneumococcal Vaccination: 07/26/18 Review of Systems - Review of Systems Constitutional: No symptoms reported EENT: No symptoms reported Cardiovascular: Palpitations Respiratory: No symptoms reported Gastrointestinal: No symptoms reported Genitourinary: No symptoms reported Male Genitourinary: No symptoms reported Musculoskeletal: No symptoms reported Skin: No symptoms reported Hematologic/Lymphatic: No symptoms reported Neurological/Psychological: No symptoms reported -: Yes All other systems reviewed and negative Physical Exam - Vital signs Vitals: Temp Resp BP Pulse Ox 98.0 F 18 116/80 96 08/11/19 11:39 08/11/19 11:39 08/11/19 11:39 08/11/19 11:39 - Notes Notes: PHYSICAL EXAMINATION: GENERAL: Well-appearing, well-nourished and in no acute distress. HEAD: Atraumatic, normocephalic. EYES: Pupils equal round and reactive to light, extraocular movements intact, sclera anicteric, conjunctiva are normal. ENT: nares patent, oropharynx clear without exudates. Moist mucous membranes. NECK: Normal range of motion, supple without lymphadenopathy LUNGS: Breath sounds clear to auscultation bilaterally and equal. No wheezes rales or rhonchi. HEART: Tachycardic with irregular rhythm ABDOMEN: Soft, nontender, normoactive bowel sounds. No guarding, no rebound. No masses appreciated. EXTREMITIES: Normal range of motion, no pitting or edema. No cyanosis. NEUROLOGICAL: No focal neurological deficits. Moves all extremities spontaneously and on command. PSYCH: Normal mood, normal affect. SKIN: Warm, Dry, normal turgor, no rashes or lesions noted. Course - Vital Signs Vital signs: Temp Pulse Resp BP Pulse Ox 98.1 F 26 H 121/91 H 97 08/11/19 16:26 08/11/19 16:26 08/11/19 16:21 08/11/19 16:26 - Laboratory Result Diagrams: 08/11/19 11:40 08/11/19 11:40 Laboratory results interpreted by me: 08/11/19 08/11/19 11:40 11:40 MCV 79 L RDW 16.1 H Eos % (Auto) 10.3 H Absolute Eos (auto) 0.8 H Carbon Dioxide 31 H Calcium 11.0 H - EKG Interpretation by Me Additional EKG results interpreted by me: 08/11/19 16:38 EKG obtained on 08/11/2019 at 1129 hrs. was interpreted by this MD. Findings: Tachycardia with a rate of 140 normal axis, narrow QRS, ST segments are nonspecific. Impression abnormal EKG - Consults DR. FAITH Time consulted: 14:34 Reason for consultation: 08/11/19 16:[address] A FLUTTER WITH RVR. DR. FAITH RECOMMENDED D/C DILTIAZEM DRIP AND START ESMOLOL DR. PURA STRICKLAND Time consulted: 16:40 Reason for consultation: 08/11/19 16:42 A FLUTTER WITH RVR Consulted provider: will come to ER Discharge - Discharge Clinical Impression: Atrial flutter with rapid ventricular response Condition: Good Disposition: ADMITTED OBSERVATION Admitting Provider: DR. STRICKLAND, CAGE LOADER Unit Admitted: ICU [facility]errals: [facility] [Primary [facility]] - Follow up as needed
--- NOTE | 2019-08-11 17:21 | CRITICAL CARE ADMISSION REPORT ---
HPI Date:: 08/11/19 Time:: 17:06 Reason for ICU Reason:: Atrial flutter, need for vasoactive med titration HPI: 54yo M with recurrent episodes of atrial flutter. Patient reports months of feeling light headed and weak with any exertion that progressed to dizziness even with standing upright. After actually passing out last week during one of these episodes he was taken to [facility] where he underwent cardioversion. He was then started on metoprolol and discharged home. A few days later he had another syncopal episode and was brought here where he was again rate controlled, monitored and discharged home. He presents today with similar symptoms and upon arrival he was in atrial flutter with a HR in the 140's and a normal blood pressure. 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 Mesa, was consulted who asked for the patient to be started on an esmolol drip. Because of his need for titrated vasoactive medications he will need to be monitored in the intensive care unit. He currently denies any light headedness, dizziness, nausea, chest pain, bowel/bladder issues or other symptoms. All other ROS negative. History obtained from:: patient - Diagnosis/Plan (1) Atrial flutter with rapid ventricular response Is this a current diagnosis for this admission?: Yes (2) Alcoholism in recovery Is this a current diagnosis for this admission?: Yes (3) Atrial fibrillation Qualifiers: Atrial fibrillation type: unspecified chronic Qualified Code(s): I48.20 - Chronic atrial fibrillation, unspecified; I48.2 - Chronic atrial fibrillation Is this a current diagnosis for this admission?: Yes (4) Chronic anticoagulation Is this a current diagnosis for this admission?: Yes (5) Hypertension Qualifiers: Hypertension type: essential hypertension Qualified Code(s): I10 - Essential (primary) hypertension Is this a current diagnosis for this admission?: Yes (6) Syncope Qualifiers: Syncope type: unspecified Qualified Code(s): R55 - Syncope and collapse Is this a current diagnosis for this admission?: Yes (7) BPH (benign prostatic hyperplasia) Qualifiers: Lower urinary tract symptom presence: symptoms present Lower urinary tract symptom detail: weak urinary stream Qualified Code(s): N40.1 - Benign prostatic hyperplasia with lower urinary tract symptoms; R39.12 - Poor urinary stream Is this a current diagnosis for this admission?: Yes - . Plan Summary: 54yo M with atrial flutter and numerous episodes of syncope recently. He was cardioverted last week at [facility] and started on rate controlling agents/anticoagulation but has had numerous episodes the last few days. Cardiology started an esmolol drip in the emergency room and he will brought to the ICU where the drip can be titrated to a HR < 100. Will monitor closely while in ICU. Patient may be good candidate for ablation procedure but care will be deferred to cardiology. Past Medical History Cardiac Medical History: Reports: Atrial Fibrillation, Hypertension Denies: Congestive Heart Failure, Coronary Artery Disease, Myocardial Infarction, Hyperlipidema Pulmonary Medical History: Denies: Asthma, Bronchitis, Chronic Obstructive Pulmonary Disease (COPD), Pneumonia Neurological Medical History: Denies: Seizures Endocrine Medical History: Denies: Diabetes Mellitus Type 1, Diabetes Mellitus Type 2, Hyperthyroidism, Hypothyroidism Malignancy Medical History: Reports: Other - BPH GI Medical History: Denies: Cirrhosis, Crohn's Disease, Gastroesophageal Reflux Disease, Hepatitis, Ulcerative Colitis Musculoskeltal Medical History: Denies: Arthritis, Gout Skin Medical History: Denies: Eczema, Psoriasis Hematology: Denies: Anemia, Bleeding Tendencies Past Surgical History Past Surgical History: Reports: Other - Colonoscopy Social/Family History - Social History Smoking Status: Never Smoker Frequency of Alcohol Use: None - Stopped drinking in October 2018 prior to that time was consuming 1/2 gallon of hard liquor daily Last Alcohol Use: 10/24/18 Hx Recreational Drug Use: No Drugs: None Hx Prescription Drug Abuse: No - Family History Family History: Other - Brother and Aunt both with atrial flutter - Medication/Allergies Home Medications: Acetaminophen [Tylenol 325 mg Tablet] 650 mg PO Q4HP PRN tablet 08/03/19 Apixaban [Eliquis 5 mg Tablet] 5 mg PO Q12 08/03/19 Cetirizine HCl [Zyrtec 10 mg Tablet] 10 mg PO DAILYP PRN 08/03/19 Cholecalciferol (Vitamin D3) [Vitamin D3 1000 Unit Tablet] 2,000 mg PO DAILY 08/03/19 Docusate Sodium [Colace 100 mg Capsule] 100 mg PO BID capsule 08/03/19 Gabapentin [Neurontin 300 mg Capsule] 300 mg PO Q8 08/03/19 Metoprolol Tartrate [Lopressor 100 mg Tablet] 100 mg PO Q12 08/03/19 Naltrexone Microspheres [Vivitrol] 380 mg IM .QMONTHLY 08/03/19 Sildenafil Citrate [Viagra] 100 mg PO ASDIR PRN 08/03/19 Tamsulosin HCl [Flomax 0.4 mg Cap.sr] 0.4 mg PO DAILY 08/03/19 Allergies/Adverse Reactions: No Known Allergies Allergy (Unverified 11/05/15 13:29) Review of Systems Constitutional: PRESENT: as per HPI Eyes: PRESENT: as per HPI Ears: PRESENT: as per HPI Nose, Mouth, and Throat: PRESENT: as per HPI Cardiovascular: PRESENT: as per HPI Respiratory: PRESENT: as per HPI Gastrointestinal: PRESENT: as per HPI Genitourinary: PRESENT: as per HPI Musculoskeletal: PRESENT: as per HPI Integumentary: PRESENT: as per HPI Neurological: PRESENT: as per HPI Psychiatric: PRESENT: as per HPI Endocrine: PRESENT: as per HPI, flushing Allergic/Immunologic: PRESENT: as per HPI Physical Exam Vital Signs: Temp Pulse Resp BP Pulse Ox 98.1 F 26 H 121/91 H 97 08/11/19 16:26 08/11/19 16:26 08/11/19 16:21 08/11/19 16:26 Intake & Output 08/10/19 08/11/19 08/12/19 06:59 06:59 06:59 Intake Total 1034 Balance 1034 Weight 87.6 kg Weight/Height Weight 87.6 kg Height 6 ft Head exam: PRESENT: atraumatic, normocephalic Eye exam: PRESENT: conjunctiva pink, EOMI, PERRLA. ABSENT: scleral icterus Ear exam: PRESENT: normal external ear exam Mouth exam: PRESENT: moist, tongue midline Neck exam: ABSENT: carotid bruit, JVD, lymphadenopathy, thyromegaly Cardiovascular exam: PRESENT: irregular rhythm, tachycardia Pulses: PRESENT: normal radial pulses, normal dorsalis pedis pul Vascular exam: PRESENT: normal capillary refill GI/Abdominal exam: PRESENT: normal bowel sounds, soft. ABSENT: distended, guar ding, mass, organolmegaly, rebound, tenderness Rectal exam: PRESENT: deferred Extremities exam: PRESENT: full ROM. ABSENT: calf tenderness, clubbing, pedal edema Neurological exam: PRESENT: alert, awake, oriented to person, oriented to place, oriented to time, oriented to situation, CN II-XII grossly intact. ABSENT: motor sensory deficit Psychiatric exam: PRESENT: appropriate affect, normal mood. ABSENT: homicidal ideation, suicidal ideation Skin exam: PRESENT: dry, intact, warm. ABSENT: cyanosis, rash Laboratory/Radiographs Laboratory Results: 08/11/19 11:40 08/11/19 11:40 08/11/19 08/11/19 11:40 11:40 WBC 7.9 RBC 5.31 Hgb 14.4 Hct 41.8 MCV 79 L MCH 27.1 MCHC 34.4 RDW 16.1 H Plt Count 420 Seg Neutrophils % 59.8 Sodium 138.3 Potassium 4.3 Chloride 99 Carbon Dioxide 31 H Anion Gap 8 BUN 17 Creatinine 1.01 Est GFR ( Amer) > 60 Glucose 99 Calcium 11.0 H Total Bilirubin 0.6 AST 27 Alkaline Phosphatase 90 Total Protein 8.1 Albumin 4.5 08/11/19 08/11/19 08/11/19 11:40 11:40 15:30 Creatine Kinase 57 CK-MB (CK-2) 0.65 Troponin I < 0.012 < 0.012 All labs, radiographs, diagnostic studies and EKGs were personally reviewed: Yes In addition, reports of radiographic and diagnostic studies were read: Yes Critical Time Critical Time (minutes): 30 -: The care of a critically ill patient is dynamic. This note represents a static moment in the admission process. Orders and treatments may be given simultaneously and urgently, and time is not account executive sales representative of the treatment process. This patient requires Critical Care secondary to life threatening organ or limb dysfunction. Without Critical Care services, the patient is at risk for increased mortality and morbidity.
[2019-08-11] MEDS ORDERED: ACETAMINOPHEN 325 MG TABLET PO PRN (17:22)
[2019-08-11] MEDS ORDERED: ONDANSETRON 4 MG TAB.RAPDIS PO PRN (17:22)
[2019-08-11 18:34] LABS: FREE T3 3.29 pg/mL (2.77-5.27); FREE T4 (FREE THYROXINE) 1.17 ng/dL (0.78-2.19)
[2019-08-11 18:47] LABS: THYROID STIMULATING HORMONE 0.28 uIU/mL (0.47-4.68)
[2019-08-11] MEDS: DILTIAZEM HCL/D5W 125 MG/125 ML RTUINJ IV ONE ×2 (18:47→19:07)
[2019-08-11] MEDS: DILTIAZEM HCL/D5W 125 MG/125 ML RTUINJ IV PRN (18:47)
[2019-08-11] MEDS ORDERED: RINGERS SOLUTION,LACTATED 1,000 ML IV PRN (18:57)
--- NOTE | 2019-08-11 21:31 | EKG REPORT ---
SEVERITY:- ABNORMAL ECG - ATRIAL FLUTTER, A-RATE [address] DEPRESSION, CONSIDER ISCHEMIA, INF LEADS : Confirmed by: Nani Kendrick MD 11-Aug-2019 21:31:21
--- NOTE | 2019-08-11 21:32 | EKG REPORT ---
SEVERITY:- ABNORMAL ECG - BORDERLINE ST DEPRESSION, INFERIOR LEADS A-FLUTTER W/ PREDOM 2:1 AV BLOCK, A-RATE 0 : Confirmed by: Nani Kendrick MD 11-Aug-2019 21:32:19
[2019-08-11] MEDS ORDERED: ENOXAPARIN SODIUM INJ 100 MG/1 ML DISP.SYRIN SUBCUT SCH (22:00)
[2019-08-11 22:40] LABS: APPEARANCE,URINE CLEAR; BILIRUBIN,URINE NEGATIVE (NEGATIVE); COLOR,URINE YELLOW; GLUCOSE, URINE NEGATIVE (NEGATIVE); KETONES,URINE NEGATIVE (NEGATIVE); LEUKOCYTE ESTERASE,URINE NEGATIVE (NEGATIVE); NITRITE,URINE NEGATIVE (NEGATIVE); PROTEIN,URINE NEGATIVE (NEGATIVE); URINE SPECIFIC GRAVITY 1.018
[2019-08-12] MEDS: ESMOLOL HCL/SOD CL 2,500 MG/250 ML RTUINJ IV PRN ×2 (01:30→06:39)
[2019-08-12 04:28] LABS: INTERNATIONAL RATION (INR) 1.23; PROTHROMBIN TIME 15.6 SEC (11.4-15.4)
[2019-08-12 04:29] LABS: PARTIAL THROMBOPLASTIN TIME 40.6 SEC (23.5-35.8)
[2019-08-12 04:48] LABS: ANION GAP 9 (5-19); BLOOD UREA NITROGEN 12 mg/dL (7-20); CALCIUM 9.8 mg/dL (8.4-10.2); CARBON DIOXIDE 27 mmol/L (22-30); CHLORIDE 103 mmol/L (98-107); GLUCOSE 105 mg/dL (75-110); PHOSPHORUS 4.6 mg/dL (2.5-4.5); POTASSIUM 4.7 mmol/L (3.6-5.0)
[2019-08-12] MEDS: DILTIAZEM HCL/D5W 125 MG/125 ML RTUINJ IV PRN (06:37)
[2019-08-12] MEDS ORDERED: DILTIAZEM HCL 180 MG CAPSULE.CR PO SCH (10:00)
[2019-08-12] MEDS ORDERED: METOPROLOL TARTRATE 100 MG TABLET PO SCH (10:00)
[2019-08-12] MEDS: APIXABAN 5 MG TABLET PO SCH ×2 (10:39→17:55)
[2019-08-12] MEDS: MAGNESIUM SULFATE/D5W 1 GM/100 ML RTUPB IV SCH ×2 (10:39→11:45)
--- NOTE | 2019-08-12 12:12 | PDOC CRITICAL CARE PROG REPORT ---
General Date:: 08/12/19 ICU Day:: 2 Hospital Day:: 2 Resuscitation Status: Full Code Events in the past 12 to 24 Hours:: Patient admitted from the ER yesterday with atrial flutter and placed on esmolol/diltiazem drips. Rate was ultimately controlled in the 80-100 range. Reason for ICU Addmission:: Atrial flutter, need for vasoactive med titration - Medications: Medications reviewed and adjusted accordingly: Yes Physical Exam Vital Signs: Temp Pulse Resp BP Pulse Ox 98.0 F 101 H 19 116/80 98 08/12/19 10:00 08/12/19 10:00 08/12/19 10:00 08/12/19 10:00 08/12/19 10:00 Intake & Output 08/11/19 08/12/19 08/13/19 06:59 06:59 06:59 Intake Total 2055 1301 Output Total 595 400 Balance 1460 901 Weight 96.1 kg Weight/Height Weight 96.1 kg Height 6 ft General appearance: PRESENT: no acute distress, well-developed, well-nourished Head exam: PRESENT: atraumatic, normocephalic Eye exam: PRESENT: conjunctiva pink, EOMI, PERRLA. ABSENT: scleral icterus Ear exam: PRESENT: normal external ear exam Mouth exam: PRESENT: moist, tongue midline Neck exam: ABSENT: carotid bruit, JVD, lymphadenopathy, thyromegaly Respiratory exam: PRESENT: clear to auscultation [place]. ABSENT: rales, rhonchi, wheezes Cardiovascular exam: PRESENT: irregular rhythm Pulses: PRESENT: normal dorsalis pedis pul Vascular exam: PRESENT: normal capillary refill GI/Abdominal exam: PRESENT: normal bowel sounds, soft. ABSENT: distended, guarding, mass, organolmegaly, rebound, tenderness Rectal exam: PRESENT: deferred Extremities exam: PRESENT: full ROM. ABSENT: calf tenderness, clubbing, pedal edema Musculoskeletal exam: PRESENT: ambulatory, full ROM. ABSENT: deformity Neurological exam: PRESENT: alert, awake, oriented to person, oriented to place, oriented to time, oriented to situation, CN II-XII grossly intact. ABSENT: motor sensory deficit Psychiatric exam: PRESENT: appropriate affect, normal mood. ABSENT: homicidal ideation, suicidal ideation Skin exam: PRESENT: dry, intact, warm. ABSENT: cyanosis, rash Laboratory/Radiographs Laboratory Results: 08/11/19 11:40 08/12/19 03:47 08/11/19 08/11/19 08/11/19 11:40 11:40 11:40 WBC 7.9 RBC 5.31 Hgb 14.4 Hct 41.8 MCV 79 L MCH 27.1 MCHC 34.4 RDW 16.1 H Plt Count 420 Seg Neutrophils % 59.8 Sodium 138.3 Potassium 4.3 Chloride 99 Carbon Dioxide 31 H Anion Gap 8 BUN 17 Creatinine 1.01 Est GFR ( Amer) > 60 Glucose 99 Calcium 11.0 H Phosphorus Magnesium Total Bilirubin 0.6 AST 27 Alkaline Phosphatase 90 Total Protein 8.1 Albumin 4.5 TSH 0.28 L Free T4 1.17 Free T3 pg/mL 3.29 Urine Color Urine Appearance Urine pH Ur Specific [place] Urine Protein Urine Glucose (UA) Urine Ketones Urine Blood Urine Nitrite Ur Leukocyte Esterase Urine WBC (Auto) 08/11/19 08/12/19 22:25 03:47 WBC RBC Hgb Hct MCV MCH MCHC RDW Plt Count Seg Neutrophils % Sodium 138.7 Potassium 4.7 Chloride 103 Carbon Dioxide 27 Anion Gap 9 BUN 12 Creatinine 0.91 Est GFR ( Amer) > 60 Glucose 105 Calcium 9.8 Phosphorus 4.6 H Magnesium 1.7 Total Bilirubin AST Alkaline Phosphatase Total Protein Albumin TSH Free T4 Free T3 pg/mL Urine Color YELLOW Urine Appearance CLEAR Urine pH 6.0 Ur Specific [place] 1.018 Urine Protein NEGATIVE Urine Glucose (UA) NEGATIVE Urine Ketones NEGATIVE Urine Blood NEGATIVE Urine Nitrite NEGATIVE Ur Leukocyte Esterase NEGATIVE Urine WBC (Auto) 1 08/11/19 08/11/19 08/11/19 11:40 11:40 15:30 Creatine Kinase 57 CK-MB (CK-2) 0.65 Troponin I < 0.012 < 0.012 All labs, radiographs, diagnostic studies and EKGs were personally reviewed: Yes In addition, reports of radiographic and diagnostic studies were read: Yes Assessment and Plan - Diagnosis (1) Atrial flutter with rapid ventricular response Is this a current diagnosis for this admission?: Yes (2) Alcoholism in recovery Is this a current diagnosis for this admission?: Yes (3) Atrial fibrillation Qualifiers: Atrial fibrillation type: unspecified chronic Qualified Code(s): I48.20 - Chronic atrial fibrillation, unspecified; I48.2 - Chronic atrial fibrillation Is this a current diagnosis for this admission?: Yes (4) Chronic anticoagulation Is this a current diagnosis for this admission?: Yes (5) Hypertension Qualifiers: Hypertension type: essential hypertension Qualified Code(s): I10 - Essential (primary) hypertension Is this a current diagnosis for this admission?: Yes (6) Syncope Qualifiers: Syncope type: unspecified Qualified Code(s): R55 - Syncope and collapse Is this a current diagnosis for this admission?: Yes (7) BPH (benign prostatic hyperplasia) Qualifiers: Lower urinary tract symptom presence: symptoms present Lower urinary tract symptom detail: weak urinary stream Qualified Code(s): N40.1 - Benign prostatic hyperplasia with lower urinary tract symptoms; R39.12 - Poor urinary stream Is this a current diagnosis for this admission?: Yes Plan Summary: 54yo M now day two with good control of his rate on IV diltiazem/esmolol. Drips converted to PO meds and patient given 180mg diltiazem with 100mg metoprolol BID. Will also replace magnesium to help maintain a more regular rhythm, restart home neurontin/flomax/eliquis and transfer upstairs. If patient does well on oral meds with no reversion to uncontrolled rate he will likely discharge soon. Critical Time Critical Time (minutes): 30 Level of Care: ICU Anticipated discharge: Home Within: within 48 hours -: 1. The care of a critical patient is a dynamic process. This note is a sales and merchandising representative synopsis but static in nature. The timeframe for treatments given in order is not necessarily the actual time these treatments may have been done. 2. This patient requires critical care secondary to ongoing requirements for therapy not offered or safe outside the critical care environment. Transfer to a lower level of care will result in altered life or limb morbidity and mort ality. 3. Multidisciplinary rounds completed. 4. ABCDE bundle addressed.
[2019-08-12] MEDS: GABAPENTIN 300 MG CAPSULE PO SCH ×2 (17:55→21:03)
[2019-08-12] MEDS: TAMSULOSIN HCL 0.4 MG CAP.SR.24H PO SCH (17:55)
--- NOTE | 2019-08-12 19:26 | EKG REPORT ---
SEVERITY:- ABNORMAL ECG - A-FLUTTER W/ PREDOM 3:1 AV BLOCK, A-RATE 272 : Confirmed by: Nani Kendrick MD 12-Aug-2019 19:26:22
[2019-08-12] MEDS ORDERED: METOPROLOL TARTRATE 50 MG TABLET ONE (20:59)
[2019-08-12] MEDS: METOPROLOL TARTRATE 50 MG TABLET PO SCH (21:02)
--- NOTE | 2019-08-12 22:16 | PDOC CONSULTATION ---
Consultation Consult Date: 08/12/19 Provider Consulted: KELL FAITH Consult reason:: Atrial fibrillation History of Present Illness Admission Date/PCP: 08/11/19 19:00 [facility] Patient complains of: Palpitations History of Present Illness: VA ROYAL is a 54 year old male Was recently seen in this hospital after an episode of syncope. This was very soon after he was cardioverted for atrial fibrillation at outside facility. However he had 2 episodes of syncope [id number] and he was admitted to the hospital for observation on telemetry. 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 However he presented to the hospital again with atrial fibrillation rapid ventricular response. At the time of my evaluation patient is in atrial flutter. I was consulted for management of arrhythmia. Patient was initially treated with diltiazem, subsequently treated with esmolol and then finally rate control with diltiazem. He has been on uninterrupted systemic anticoagulation. At the time of my evaluation patient reports feeling much better. Past Medical History Cardiac Medical History: Reports: Atrial Fibrillation, Hypertension Denies: Congestive Heart Failure, Coronary Artery Disease, Myocardial Infarction, Hyperlipidema Pulmonary Medical History: Denies: Asthma, Bronchitis, Chronic Obstructive Pulmonary Disease (COPD), Pneumonia Neurological Medical History: Denies: Seizures Endocrine Medical History: Denies: Diabetes Mellitus Type 1, Diabetes Mellitus Type 2, Hyperthyroidism, Hypothyroidism Malignancy Medical History: Reports: Other - BPH GI Medical History: Denies: Cirrhosis, Crohn's Disease, Gastroesophageal Reflux Disease, Hepatitis, Ulcerative Colitis Musculoskeltal Medical History: Denies: Arthritis, Gout Skin Medical History: Denies: Eczema, Psoriasis Hematology: Denies: Anemia, Bleeding Tendencies Past Surgical History Past Surgical History: Reports: Other - Colonoscopy Social History Smoking Status: Never Smoker Frequency of Alcohol Use: None Hx Recreational Drug Use: No Drugs: None Hx Prescription Drug Abuse: No - Advance Directive Resuscitation Status: Full Code Family History Family History: Other - Brother and Aunt both with atrial flutter Parental Family History Reviewed: No Children Family History Reviewed: NA Sibling(s) Family History Reviewed.: NA - No familial illnesses reported to me Medication/Allergy Home Medications: Apixaban [Eliquis 5 mg Tablet] 5 mg PO Q12 08/03/19 Cetirizine HCl [Zyrtec 10 mg Tablet] 10 mg PO DAILYP PRN 08/03/19 Cholecalciferol (Vitamin D3) [Vitamin D3 1000 Unit Tablet] 2,000 mg PO DAILY 08/03/19 Gabapentin [Neurontin 300 mg Capsule] 300 mg PO Q8 08/03/19 Metoprolol Tartrate [Lopressor 100 mg Tablet] 100 mg PO Q12 08/03/19 Naltrexone Microspheres [Vivitrol] 380 mg IM .QMONTHLY 08/03/19 Sildenafil Citrate [Viagra] 100 mg PO ASDIR PRN 08/03/19 Tamsulosin HCl [Flomax 0.4 mg Cap.sr] 0.4 mg PO DAILY 08/03/19 Allergies/Adverse Reactions: No Known Allergies Allergy (Unverified 11/05/15 13:29) Review of Systems Cardiovascular: PRESENT: palpitations Physical Exam Vital Signs: Temp Pulse Resp BP Pulse Ox 97.2 F 136 H 22 H 127/93 H 100 08/12/19 20:00 08/12/19 19:00 08/12/19 20:39 08/12/19 20:39 08/12/19 17:00 Intake & Output 08/11/19 08/12/19 08/13/19 06:59 06:59 06:59 Intake Total 2055 1763 Output Total 595 1630 Balance 1460 133 Weight 96.1 kg General appearance: PRESENT: no acute distress, well-developed Head exam: PRESENT: atraumatic, normocephalic Eye exam: PRESENT: EOMI Respiratory exam: PRESENT: symmetrical, unlabored Cardiovascular exam: PRESENT: irregular rhythm, +S1, +S2 Pulses: PRESENT: normal radial pulses GI/Abdominal exam: PRESENT: soft Rectal exam: PRESENT: deferred Neurological exam: PRESENT: alert, awake, oriented to person, oriented to place, oriented to time Psychiatric exam: PRESENT: appropriate affect Skin exam: PRESENT: dry, intact, normal color Results Laboratory Results: 08/11/19 11:40 08/12/19 03:47 08/11/19 08/12/19 22:25 03:47 Sodium 138.7 Potassium 4.7 Chloride 103 Carbon Dioxide 27 Anion Gap 9 BUN 12 Creatinine 0.91 Est GFR ( Amer) > 60 Glucose 105 Calcium 9.8 Phosphorus 4.6 H Magnesium 1.7 Urine Color YELLOW Urine Appearance CLEAR Urine pH 6.0 Ur Specific [place] 1.018 Urine Protein NEGATIVE Urine Glucose (UA) NEGATIVE Urine Ketones NEGATIVE Urine Blood NEGATIVE Urine Nitrite NEGATIVE Ur Leukocyte Esterase NEGATIVE Urine WBC (Auto) 1 08/11/19 08/11/19 08/11/19 11:40 11:40 15:30 Creatine Kinase 57 CK-MB (CK-2) 0.65 Troponin I < 0.012 < 0.012 EKG Comments: Twelve-lead EKG shows atrial flutter with variable ventricular response. Telemetry shows atrial flutter with variable conduction. Ventricular rate is 92 bpm. Assessment & Plan - Diagnosis (1) Atrial flutter with rapid ventricular response Is this a current diagnosis for this admission?: Yes Plan: Atrial flutter with rapid ventricular response. Agree with rate control measures Continue diltiazem for rate control May use digoxin in addition for rate control Continue systemic anticoagulation Patient has established follow-up with cardiology. Rhythm caodaism with ablation can be pursued as an outpatient
[2019-08-13] MEDS: GABAPENTIN 300 MG CAPSULE PO SCH ×3 (05:53→21:04)
[2019-08-13] MEDS ORDERED: METOPROLOL TARTRATE PF/INJ 5 MG/5 ML SDV IV ONE (06:32)
[2019-08-13] MEDS: DILTIAZEM HCL 240 MG CAPSULE.CR PO SCH (09:23)
[2019-08-13] MEDS: METOPROLOL TARTRATE 50 MG TABLET PO SCH ×2 (09:23→21:04)
[2019-08-13] MEDS: APIXABAN 5 MG TABLET PO SCH ×2 (09:23→17:41)
--- NOTE | 2019-08-13 14:04 | PDOC CRITICAL CARE PROG REPORT ---
General Date:: 08/13/19 ICU Day:: 2 Hospital Day:: 2 Resuscitation Status: Full Code Events in the past 12 to 24 Hours:: After weaning off IV drips the patient's HR has risen back to the 120-140 range. He has been asymptomatic but has mostly been bed bound. Reason for ICU Addmission:: Atrial flutter, need for vasoactive med titration Physical Exam Vital Signs: Temp Pulse Resp BP Pulse Ox 98.7 F 87 22 H 92/62 L 96 08/13/19 12:00 08/13/19 12:00 08/13/19 12:00 08/13/19 12:00 08/13/19 12:00 Intake & Output 08/12/19 08/13/19 08/14/19 06:59 06:59 06:59 Intake Total 2054 1984 Output Total 595 2590 240 Balance 1460 -605 -240 Weight 96.1 kg 93.1 kg Weight/Height Weight 93.1 kg Height 6 ft General appearance: PRESENT: no acute distress, well-developed, well-nourished Head exam: PRESENT: atraumatic, normocephalic Eye exam: PRESENT: conjunctiva pink, EOMI, PERRLA. ABSENT: scleral icterus Ear exam: PRESENT: normal external ear exam Mouth exam: PRESENT: moist, tongue midline Neck exam: ABSENT: carotid bruit, JVD, lymphadenopathy, thyromegaly Respiratory exam: PRESENT: clear to auscultation [place]. ABSENT: rales, rhonchi, wheezes Cardiovascular exam: PRESENT: irregular rhythm, tachycardia. ABSENT: diastolic murmur, rubs, systolic murmur Pulses: PRESENT: normal dorsalis pedis pul Vascular exam: PRESENT: normal capillary refill GI/Abdominal exam: PRESENT: normal bowel sounds, soft. ABSENT: distended, guarding, mass, organolmegaly, rebound, tenderness Rectal exam: PRESENT: deferred Extremities exam: PRESENT: full ROM. ABSENT: calf tenderness, clubbing, pedal edema Neurological exam: PRESENT: alert, awake, oriented to person, oriented to place, oriented to time, oriented to situation, CN II-XII grossly intact. ABSENT: motor sensory deficit Psychiatric exam: PRESENT: appropriate affect, normal mood. ABSENT: homicidal ideation, suicidal ideation Skin exam: PRESENT: dry, intact, warm. ABSENT: cyanosis, rash Laboratory/Radiographs Laboratory Results: 08/11/19 11:40 08/12/19 03:47 08/13/19 04:26 Phosphorus 4.0 08/11/19 08/11/19 08/11/19 11:40 11:40 15:30 Creatine Kinase 57 CK-MB (CK-2) 0.65 Troponin I < 0.012 < 0.012 All labs, radiographs, diagnostic studies and EKGs were personally reviewed: Yes In addition, reports of radiographic and diagnostic studies were read: Yes Assessment and Plan - Diagnosis (1) Atrial flutter with rapid ventricular response Is this a current diagnosis for this admission?: Yes (2) Alcoholism in recovery Is this a current diagnosis for this admission?: Yes (3) Atrial fibrillation Qualifiers: Atrial fibrillation type: unspecified chronic Qualified Code(s): I48.20 - Chronic atrial fibrillation, unspecified; I48.2 - Chronic atrial fibrillation Is this a current diagnosis for this admission?: Yes (4) Chronic anticoagulation Is this a current diagnosis for this admission?: Yes (5) Hypertension Qualifiers: Hypertension type: essential hypertension Qualified Code(s): I10 - Essent ial (primary) hypertension Is this a current diagnosis for this admission?: Yes (6) Syncope Qualifiers: Syncope type: unspecified Qualified Code(s): R55 - Syncope and collapse Is this a current diagnosis for this admission?: Yes (7) BPH (benign prostatic hyperplasia) Qualifiers: Lower urinary tract symptom presence: symptoms present Lower urinary tract symptom detail: weak urinary stream Qualified Code(s): N40.1 - Benign prostatic hyperplasia with lower urinary tract symptoms; R39.12 - Poor urinary stream Is this a current diagnosis for this admission?: Yes Plan Summary: Weaning off drip the patient initially had a well controlled HR but he is now in the 120's-130's at rest. Per cardiology recs, Diltiazem increased to 240mg and should this still not control his rate, will add digoxin. Patient otherwise asymptomatic. Transfer to tele floor to continue his med titration as he no longer has any ICU needs. Critical Time Critical Time (minutes): 30 Level of Care: TELE Anticipated discharge: Home Within: within 72 hours -: 1. The care of a critical patient is a dynamic process. This note is a security representative synopsis but static in nature. The timeframe for treatments given in order is not necessarily the actual time these treatments may have been done. 2. This patient requires critical care secondary to ongoing requirements for therapy not offered or safe outside the critical care environment. Transfer to a lower level of care will result in altered life or limb morbidity and mortality. 3. Multidisciplinary rounds completed. 4. ABCDE bundle addressed.
[2019-08-13] MEDS: TAMSULOSIN HCL 0.4 MG CAP.SR.24H PO SCH (17:41)
--- NOTE | 2019-08-13 18:35 | EKG REPORT ---
SEVERITY:- ABNORMAL ECG - ATRIAL FLUTTER/FIBRILLATION, A-RATE 275 : Confirmed by: Nani Kendrick MD 13-Aug-2019 18:34:09
[2019-08-14 04:28] LABS: ANION GAP 7 (5-19); BLOOD UREA NITROGEN 13 mg/dL (7-20); CALCIUM 9.9 mg/dL (8.4-10.2); CARBON DIOXIDE 28 mmol/L (22-30); CHLORIDE 104 mmol/L (98-107); GLUCOSE 95 mg/dL (75-110); PHOSPHORUS 4.7 mg/dL (2.5-4.5); POTASSIUM 4.2 mmol/L (3.6-5.0)
[2019-08-14] MEDS ORDERED: MAGNESIUM SULFATE/D5W 1 GM/100 ML RTUPB IV ONE ×3 (05:04→22:51)
[2019-08-14] MEDS: GABAPENTIN 300 MG CAPSULE PO SCH ×3 (05:22→21:25)
--- NOTE | 2019-08-14 07:40 | EKG REPORT ---
SEVERITY:- ABNORMAL ECG - A-FLUTTER W/ VARIED AV BLOCK, A-RATE 267 NONSPECIFIC INTRAVENTRICULAR CONDUCTION DELAY : Confirmed by: Luis Lloyd MD 14-Aug-2019 07:39:39
[2019-08-14] MEDS ORDERED: NALTREXONE MICROSPHERES 380 MG IM SCH (08:15)
[2019-08-14] MEDS ORDERED: INFLUENZA QUAD (6MOS+) 2019-20 VAC 0.5 ML SYR IM ONE (09:36)
[2019-08-14] MEDS: CHOLECALCIFEROL (D3) 1,000 UNIT (25 MCG) TABLET PO SCH (10:07)
[2019-08-14] MEDS: METOPROLOL TARTRATE 50 MG TABLET PO SCH (10:07)
[2019-08-14] MEDS: APIXABAN 5 MG TABLET PO SCH ×2 (10:09→21:25)
[2019-08-14] MEDS: DILTIAZEM HCL 240 MG CAPSULE.CR PO SCH (10:09)
[2019-08-14] MEDS: TAMSULOSIN HCL 0.4 MG CAP.SR.24H PO SCH (10:09)
--- NOTE | 2019-08-14 10:17 | PDOC CRITICAL CARE PROG REPORT ---
General Date:: 08/14/19 ICU Day:: 3 Hospital Day:: 3 Resuscitation Status: Full Code Events in the past 12 to 24 Hours:: HR has slowed some. Still not well controlled. Adding digoxin. Review of systems relevant to events:: CV Reason for ICU Addmission:: Atrial flutter, need for vasoactive med titration - Medications: Medications reviewed and adjusted accordingly: Yes Vasopressors:: None Sedation:: None Physical Exam Vital Signs: Temp Pulse Resp BP Pulse Ox 98.0 F 135 H 20 111/96 H 96 08/14/19 07:08 08/14/19 07:08 08/14/19 07:08 08/14/19 07:08 08/14/19 07:08 Intake & Output 08/13/19 08/14/19 08/15/19 06:59 06:59 06:59 Intake Total 1985 340 Output Total 2590 1095 Balance -605 -755 Weight 93.1 kg 93.4 kg Weight/Height Weight 93.4 kg Height 6 ft General appearance: PRESENT: no acute distress, well-developed, well-nourished Head exam: PRESENT: atraumatic, normocephalic Eye exam: PRESENT: conjunctiva pink, EOMI, PERRLA. ABSENT: scleral icterus Ear exam: PRESENT: normal external ear exam Mouth exam: PRESENT: moist, tongue midline Respiratory exam: PRESENT: clear to auscultation [place]. ABSENT: rales, rhonchi, wheezes Cardiovascular exam: PRESENT: irregular rhythm, tachycardia Pulses: PRESENT: normal dorsalis pedis pul Vascular exam: PRESENT: normal capillary refill GI/Abdominal exam: PRESENT: normal bowel sounds, soft. ABSENT: distended, guarding, mass, organolmegaly, rebound, tenderness Rectal exam: PRESENT: deferred Extremities exam: PRESENT: full ROM. ABSENT: calf tenderness, clubbing, pedal edema Neurological exam: PRESENT: alert, awake, oriented to person, oriented to place, oriented to time, oriented to situation, CN II-XII grossly intact. ABSENT: motor sensory deficit Skin exam: PRESENT: dry, intact, warm. ABSENT: cyanosis, rash Laboratory/Radiographs Laboratory Results: 08/11/19 11:40 08/14/19 03:49 08/14/19 03:49 Sodium 139.3 Potassium 4.2 Chloride 104 Carbon Dioxide 28 Anion Gap 7 BUN 13 Creatinine 0.80 Est GFR ( Amer) > 60 Glucose 95 Calcium 9.9 Phosphorus 4.7 H Magnesium 1.8 08/11/19 08/11/19 08/11/19 11:40 11:40 15:30 Creatine Kinase 57 CK-MB (CK-2) 0.65 Troponin I < 0.012 < 0.012 All labs, radiographs, diagnostic studies and EKGs were personally reviewed: Yes In addition, reports of radiographic and diagnostic studies were read: Yes Assessment and Plan - Diagnosis (1) Atrial flutter with rapid ventricular response Is this a current diagnosis for this admission?: Yes Plan: Still not well controlled. Will add digoxin. Hope to discharge soon. Downgraded. (2) BPH (benign prostatic hyperplasia) Qualifiers: Lower urinary tract symptom presence: symptoms present Lower urinary tract symptom detail: weak urinary stream Qualified Code(s): N40.1 - Benign prostatic hyperplasia with lower urinary tract symptoms; R39.12 - Poor urinary stream Is this a current diagnosis for this admission?: Yes Plan: No symptoms. (3) Syncope Qualifiers: Syncope type: unspecified Qualified Code(s): R55 - Syncope and collapse Is this a current diagnosis for this admission?: Yes Plan: The main presenting problem with his afib/flutter. I am a bit uneasy about sending him home now with a HR that can reach 140s with activity. Will get him OOB and ambulate to see if he is symptomatic in any way. He has no car and has walked to appointments before. Plan Summary: OOB and ambulate. Downgraded. Critical Time Critical Time (minutes): 30 Level of Care: TELE Anticipated discharge: Home Within: within 48 hours -: 1. The care of a critical patient is a dynamic process. This note is a retail service representative synopsis but static in nature. The timeframe for treatments given in order is not necessarily the actual time these treatments may have been done. 2. This patient requires critical care secondary to ongoing requirements for therapy not offered or safe outside the critical care environment. Transfer to a lower level of care will result in altered life or limb morbidity and mortality. 3. Multidisciplinary rounds completed. 4. ABCDE bundle addressed.
[2019-08-14] MEDS: DIGOXIN INJ 0.5 MG/2 ML AMPULE IV SCH ×2 (11:57→17:29)
[2019-08-14] MEDS ORDERED: METOPROLOL TARTRATE 25 MG TABLET PO ONE (22:00)
[2019-08-14] MEDS ORDERED: METOPROLOL TARTRATE 50 MG TABLET PO SCH (22:00)
[2019-08-14] MEDS: MAGNESIUM SULFATE/D5W 1 GM/100 ML RTUPB IV SCH ×2 (22:45→23:41)
--- NOTE | 2019-08-14 22:49 | Progress Note ---
Provider Note Provider Note: Notified by RN that hematuria worsening again. Observation at bedside yielded dark red slow moving blood from catheter. POCUS performed by myself at bedside demonstrating there was a small to moderate amount of fluid retained within the bladder. Maintaining sterility, the ramirez catheter was irrigated with 280 mL barrera rile saline yielding a total of 375 mL output for net urine output of 95 mL. Catheter draining well at the moment, though will resume continuous bladder irrigation at this time to prevent thrombosis, discomfort, and a urological emergency. POCUS repeated post intervention and the bladder was mostly collapsed around the ramirez balloon. If hematuria continues to persist, patient may require transfer for urological services. However, it is important to note that the family previously requested that prior to transferring for urology specialty, that they would like the patient to decide on tracheostomy versus terminal extubation as that decision does have a significant impact on decision making at this time. Will discuss the above with Dr Lynch in the morning.
[2019-08-15] MEDS ORDERED: METOPROLOL TARTRATE PF/INJ 5 MG/5 ML SDV IV ONE ×3 (05:14→06:21)
[2019-08-15] MEDS: GABAPENTIN 300 MG CAPSULE PO SCH ×3 (05:16→21:25)
--- NOTE | 2019-08-15 08:16 | PDOC CRITICAL CARE PROG REPORT ---
General Date:: 08/15/19 Hospital Day:: 4 Resuscitation Status: Full Code Events in the past 12 to 24 Hours:: Still struggling to get medication regimen to control rate that does not drop BP and make him dizzy. Review of systems relevant to events:: CV Reason for ICU Addmission:: Atrial flutter, need for vasoactive med titration now resolved - Medications: Medications reviewed and adjusted accordingly: Yes Vasopressors:: None Sedation:: None Physical Exam Vital Signs: Temp Pulse Resp BP Pulse Ox 97.8 F 136 H 19 102/69 96 08/15/19 07:11 08/15/19 07:11 08/15/19 07:11 08/15/19 07:11 08/15/19 07:11 Intake & Output 08/14/19 08/15/19 08/16/19 06:59 06:59 06:59 Intake Total 340 193 Output Total 1095 1375 Balance -755 -1182 Weight 93.4 kg 93.8 kg Weight/Height Weight 93.8 kg Height 6 ft General appearance: PRESENT: no acute distress, well-developed, well-nourished Head exam: PRESENT: atraumatic, normocephalic Eye exam: PRESENT: conjunctiva pink, EOMI, PERRLA. ABSENT: scleral icterus Ear exam: PRESENT: normal external ear exam Mouth exam: PRESENT: moist, tongue midline Respiratory exam: PRESENT: clear to auscultation [place]. ABSENT: rales, rhonchi, wheezes Cardiovascular exam: PRESENT: irregular rhythm Rectal exam: PRESENT: deferred Extremities exam: PRESENT: full ROM. ABSENT: calf tenderness, clubbing, pedal edema Neurological exam: PRESENT: alert, awake, oriented to person, oriented to place, oriented to time, oriented to situation, CN II-XII grossly intact. ABSENT: motor sensory deficit Psychiatric exam: PRESENT: appropriate affect, normal mood. ABSENT: homicidal ideation, suicidal ideation Skin exam: PRESENT: dry, intact, warm. ABSENT: cyanosis, rash Laboratory/Radiographs Laboratory Results: 08/11/19 11:40 08/14/19 03:49 08/15/19 03:46 Magnesium 2.3 08/11/19 08/11/19 08/11/19 11:40 11:40 15:30 Creatine Kinase 57 CK-MB (CK-2) 0.65 Troponin I < 0.012 < 0.012 All labs, radiographs, diagnostic studies and EKGs were personally reviewed: Yes In addition, reports of radiographic and diagnostic studies were read: Yes Assessment and Plan - Diagnosis (1) Atrial flutter with rapid ventricular response Is this a current diagnosis for this admission?: Yes Plan: Medications held include digoxin and metoprolol adjusted. Digoxin load to comp lete today. He is written for transfer to tele floor. When a regimen is decided that will preserved BP without symptoms and control rate will discharge home. HR gets out f control with walking. (2) BPH (benign prostatic hyperplasia) Qualifiers: Lower urinary tract symptom presence: symptoms present Lower urinary tract symptom detail: weak urinary stream Qualified Code(s): N40.1 - Benign prostatic hyperplasia with lower urinary tract symptoms; R39.12 - Poor urinary stream Is this a current diagnosis for this admission?: Yes Plan: No complaints (3) Syncope Qualifiers: Syncope type: unspecified Qualified Code(s): R55 - Syncope and collapse Is this a current diagnosis for this admission?: Yes Plan: Correlated yesterday more to BP drop with activity. Plan Summary: Digoxin restarted. Dr. Alvarado needs to help adjust meds. Critical Time Critical Time (minutes): 30 Level of Care: TELE Anticipated discharge: Home Within: within 48 hours -: 1. The care of a critical patient is a dynamic process. This note is a risk control representative synopsis but static in nature. The timeframe for treatments given in order is not necessarily the actual time these treatments may have been done. 2. This patient requires critical care secondary to ongoing requirements for therapy not offered or safe outside the critical care environment. Transfer to a lower level of care will result in altered life or limb morbidity and mortality. 3. Multidisciplinary rounds completed. 4. ABCDE bundle addressed.
[2019-08-15] MEDS: DIGOXIN INJ 0.5 MG/2 ML AMPULE IV SCH ×2 (10:07→21:26)
[2019-08-15] MEDS: METOPROLOL TARTRATE 50 MG TABLET PO SCH ×2 (10:08→21:25)
[2019-08-15] MEDS: APIXABAN 5 MG TABLET PO SCH ×2 (10:08→21:25)
[2019-08-15] MEDS: CHOLECALCIFEROL (D3) 1,000 UNIT (25 MCG) TABLET PO SCH (10:08)
[2019-08-15] MEDS: TAMSULOSIN HCL 0.4 MG CAP.SR.24H PO SCH (10:08)
--- NOTE | 2019-08-15 15:51 | PDOC PROGRESS REPORT ---
Subjective Progress Note for:: 08/15/19 Subjective:: Patient seen and examined. The last 24 hours he did have some low heart rates after being started on digoxin. He endorsed symptoms symptoms including nausea and fatigue when he was bradycardic. Presently he is back in atrial flutter with rapid ventricular response rate 120 to 130 bpm. No symptoms reported. Reason For Visit: ATRIAL FLUTTER AND SYNCOPE Physical Exam Vital Signs: Temp Pulse Resp BP Pulse Ox 98.1 F 117 H 24 H 120/89 H 97 08/15/19 12:00 08/15/19 12:00 08/15/19 12:20 08/15/19 15:39 08/15/19 12:00 Intake & Output 08/14/19 08/15/19 08/16/19 06:59 06:59 06:59 Intake Total 340 193 Output Total 1095 1375 Balance -755 -1182 Weight 93.4 kg 93.8 kg General appearance: PRESENT: cooperative, well-developed Head exam: PRESENT: atraumatic, normocephalic Eye exam: PRESENT: EOMI Respiratory exam: PRESENT: clear to auscultation [place], symmetrical, unlabored Cardiovascular exam: PRESENT: irregular rhythm, +S1, +S2 Pulses: PRESENT: normal radial pulses GI/Abdominal exam: PRESENT: soft Rectal exam: PRESENT: deferred Neurological exam: PRESENT: alert, awake, oriented to person, oriented to place, oriented to time, oriented to situation Psychiatric exam: PRESENT: appropriate affect Results Laboratory Results: 08/11/19 11:40 08/14/19 03:49 08/15/19 03:46 Magnesium 2.3 08/11/19 08/11/19 08/11/19 11:40 11:40 15:30 Creatine Kinase 57 CK-MB (CK-2) 0.65 Troponin I < 0.012 < 0.012 Assessment & Plan - Diagnosis (1) Atrial flutter with rapid ventricular response Is this a current diagnosis for this admission?: Yes Plan: Atrial flutter with rapid ventricular response After initiation of digoxin and together with beta-lauren his heart rate became very low. It would be reasonable just to omit digoxin Continue systemic anticoagulation with apixaban We will continue with beta-lauren therapy 50 mg metoprolol tartrate twice daily Could consider adding diltiazem CD 120 mg daily if additional rate control is required. If ventricular rate is controlled patient can be discharged for outpatient follow-up and pursuit of ablation therapy for atrial flutter. It is my understanding that patient has established cardiology follow-up for his arrhythmia.
--- NOTE | 2019-08-15 17:15 | Progress Note ---
Provider Note Provider Note: Patient going to floor. Dr. Lindsey sanchez.
[2019-08-16] MEDS: GABAPENTIN 300 MG CAPSULE PO SCH ×3 (05:36→21:13)
[2019-08-16] MEDS: APIXABAN 5 MG TABLET PO SCH ×2 (09:36→21:13)
[2019-08-16] MEDS: METOPROLOL TARTRATE 50 MG TABLET PO SCH ×2 (09:36→21:13)
[2019-08-16] MEDS: CHOLECALCIFEROL (D3) 1,000 UNIT (25 MCG) TABLET PO SCH (09:36)
[2019-08-16] MEDS: TAMSULOSIN HCL 0.4 MG CAP.SR.24H PO SCH (09:36)
--- NOTE | 2019-08-16 14:43 | PDOC PROGRESS REPORT ---
Subjective Progress Note for:: 08/16/19 Subjective:: Patient is a 54-year-old -[place] male admitted for recurrent syncopal events in the setting of acute atrial flutter/fib. Patient was initially admitted to ICU but stabilized and later transferred out to general medical floor though his heart rate has been persistently difficult to control often jumping up to the 130s at times. 08/16: Symptomatically patient appears to be improved though he is understandably concerned that he may continue having syncopal episodes. We discussed at length that he should not be driving and he states he has not driven in years anyway. He very likely needs an ablation which will need to be done at a tertiary facility I suspect. No new complaints. Reason For Visit: ATRIAL FLUTTER AND SYNCOPE Physical Exam Vital Signs: Temp Pulse Resp BP Pulse Ox 98.0 F 135 H 18 118/84 100 08/16/19 11:01 08/16/19 11:01 08/16/19 11:01 08/16/19 11:01 08/16/19 11:01 Intake & Output 08/15/19 08/16/19 08/17/19 06:59 06:59 06:59 Intake Total 193 Output Total 1375 825 Balance -1182 -825 Weight 93.8 kg 93.8 kg General appearance: PRESENT: no acute distress, well-developed, well-nourished Head exam: PRESENT: atraumatic, normocephalic Eye exam: PRESENT: conjunctiva pink Mouth exam: PRESENT: moist Respiratory exam: PRESENT: clear to auscultation [place]. ABSENT: rales, rhonchi, wheezes Cardiovascular exam: PRESENT: irregular rhythm, tachycardia. ABSENT: diastolic murmur, rubs, systolic murmur GI/Abdominal exam: PRESENT: normal bowel sounds, soft. ABSENT: distended, guarding, mass, organolmegaly, rebound, tenderness Musculoskeletal exam: PRESENT: ambulatory Neurological exam: PRESENT: alert, awake Psychiatric exam: PRESENT: appropriate affect, normal mood Skin exam: PRESENT: dry, intact, warm Results Laboratory Results: 08/11/19 11:40 08/14/19 03:49 08/11/19 08/11/19 08/11/19 11:40 11:40 15:30 Creatine Kinase 57 CK-MB (CK-2) 0.65 Troponin I < 0.012 < 0.012 Assessment and Plan - Diagnosis (1) Atrial flutter with rapid ventricular response Is this a current diagnosis for this admission?: Yes Plan: PER COMPLAINT INSPECTOR: "Medications held include digoxin and metoprolol adjusted. Digoxin load to complete today. He is written for transfer to tele floor. When a regimen is decided that will preserved BP without symptoms and control rate will discharge home. HR gets out f control with walking." -Heart rate still elevated occasionally up to the 130s outpatient is not cur rently symptomatic -has not had any syncope recently -metoprolol alone per cardiology (2) BPH (benign prostatic hyperplasia) Qualifiers: Lower urinary tract symptom presence: symptoms present Lower urinary tract symptom detail: weak urinary stream Qualified Code(s): N40.1 - Benign prostatic hyperplasia with lower urinary tract symptoms; R39.12 - Poor urinary stream Is this a current diagnosis for this admission?: Yes Plan: -stable, denies retention (3) Alcoholism in recovery Is this a current diagnosis for this admission?: Yes Plan: -quit drinking long ago per pt (4) Atrial fibrillation Qualifiers: Atrial fibrillation type: unspecified Qualified Code(s): I48.91 - Unspecified atrial fibrillation Is this a current diagnosis for this admission?: Yes (5) Chronic anticoagulation Is this a current diagnosis for this admission?: Yes Plan: -Apixaban for Afib (6) Hypertension Qualifiers: Hypertension type: essential hypertension Qualified Code(s): I10 - Essential (primary) hypertension Is this a current diagnosis for this admission?: Yes Plan: -controlled on current meds (7) Syncope Qualifiers: Syncope type: unspecified Qualified Code(s): R55 - Syncope and collapse Is this a current diagnosis for this admission?: Yes Plan: -Per pt, occurs with exertion primarily; likely precipitated by very high HR w/ Aflutter causing lack of adequate brain perfusion No driving - Time Time Spent with patient: 25-34 minutes Anticipated discharge: Home Within: within 48 hours - Inpatient Certification Medical Necessity: Significant Comorbidiites Make Outpatient Treatment Too Risky, Need Close Monitoring Due to Risk of Patient Decompensation
--- NOTE | 2019-08-16 17:38 | PDOC PROGRESS REPORT ---
Subjective Progress Note for:: 08/16/19 Subjective:: Patient seen and examined. Transferred out of the intensive care unit. Presently on oral medications. Did have significant bradycardia when digoxin was used together with other AV richardson blockers. Digoxin has been stopped. Reason For Visit: ATRIAL FLUTTER AND SYNCOPE Physical Exam Vital Signs: Temp Pulse Resp BP Pulse Ox 98.0 F 119 H 18 118/84 100 08/16/19 11:01 08/16/19 14:00 08/16/19 11:01 08/16/19 11:01 08/16/19 11:01 Intake & Output 08/15/19 08/16/19 08/17/19 06:59 06:59 06:59 Intake Total 193 Output Total 1375 825 Balance -1182 -825 Weight 93.8 kg 93.8 kg General appearance: PRESENT: no acute distress, cooperative Head exam: PRESENT: atraumatic, normocephalic Eye exam: PRESENT: EOMI Mouth exam: PRESENT: moist Respiratory exam: PRESENT: clear to auscultation [place], symmetrical, unlabored Cardiovascular exam: PRESENT: irregular rhythm, +S1, +S2 GI/Abdominal exam: PRESENT: soft Rectal exam: PRESENT: deferred Neurological exam: PRESENT: alert, awake, oriented to person, oriented to place, oriented to time, oriented to situation, CN II-XII grossly intact Psychiatric exam: PRESENT: appropriate affect Skin exam: PRESENT: dry, intact, normal color Results Laboratory Results: 08/11/19 11:40 08/14/19 03:49 08/11/19 08/11/19 08/11/19 11:40 11:40 15:30 Creatine Kinase 57 CK-MB (CK-2) 0.65 Troponin I < 0.012 < 0.012 EKG Comments: Telemetry shows atrial flutter with variable AV conduction. Heart rate presently at 110 bpm. Assessment & Plan - Diagnosis (1) Atrial flutter with rapid ventricular response Is this a current diagnosis for this admission?: Yes Plan: Atrial flutter with rapid ventricular response Would recommend continuing beta-lauren therapy Option to add diltiazem if additional medications are necessary Requires outpatient follow-up to pursue catheter ablation. Patient has established care with cardiology this can be pursued as an outpatient. He is reasonably rate controlled
[2019-08-17] MEDS: GABAPENTIN 300 MG CAPSULE PO SCH ×3 (05:17→21:03)
[2019-08-17] MEDS: METOPROLOL TARTRATE 50 MG TABLET PO SCH ×2 (09:40→21:03)
[2019-08-17] MEDS: TAMSULOSIN HCL 0.4 MG CAP.SR.24H PO SCH (09:40)
[2019-08-17] MEDS: CHOLECALCIFEROL (D3) 1,000 UNIT (25 MCG) TABLET PO SCH (09:40)
[2019-08-17] MEDS: APIXABAN 5 MG TABLET PO SCH ×2 (09:41→21:03)
--- NOTE | 2019-08-17 14:09 | PDOC PROGRESS REPORT ---
Subjective Progress Note for:: 08/17/19 Subjective:: Patient is a 54-year-old -Maldivian male admitted for recurrent syncopal events in the setting of acute atrial flutter/fib. Patient was initially admitted to ICU but stabilized and later transferred out to general medical floor though his heart rate has been persistently difficult to control often jumping up to the 130s at times. 08/16: Symptomatically patient appears to be improved though he is understandably concerned that he may continue having syncopal episodes. We discussed at length that he should not be driving and he states he has not driven in years anyway. He very likely needs an ablation which will need to be done at a tertiary facility I suspect. No new complaints. 08/17: Patient's heart rate continues to be uncontrolled 130s. There have been no medication changes per the cardiology note but he did suggest potentially trying diltiazem. Patient has not experienced any syncope since being admitted but he did have some presyncope while he was still in the ICU. This occurred when he was given digoxin and the medication was subsequently discontinued. We will try diltiazem low-dose every 6 hours and reassess if his heart rate imp roves or if he becomes presyncopal again. If he becomes syncopal or presyncopal while we are titrating this diltiazem to reach her heart rate goal of 110 or less, I will promptly transfer him to [facility] to have a more expeditious ablation which she certainly needs. I do not believe he would be safe to leave the hospital with a markedly elevated heart rate or if he is syncopal/presyncopal. Patient is in full agreement with this plan. Reason For Visit: ATRIAL FLUTTER AND SYNCOPE Physical Exam Vital Signs: Temp Pulse Resp BP Pulse Ox 98.1 F 138 H 18 106/82 100 08/17/19 10:48 08/17/19 10:48 08/17/19 10:48 08/17/19 10:48 08/17/19 10:48 Intake & Output 08/16/19 08/17/19 08/18/19 06:59 06:59 06:59 Intake Total 1340 557 Output Total 825 1525 275 Balance -825 -185 282 Weight 93.8 kg 95.3 kg General appearance: PRESENT: no acute distress, well-developed, well-nourished Head exam: PRESENT: atraumatic, normocephalic Eye exam: PRESENT: conjunctiva pink Mouth exam: PRESENT: moist Respiratory exam: PRESENT: clear to auscultation [place]. ABSENT: rales, rhonchi, wheezes Cardiovascular exam: PRESENT: irregular rhythm, tachycardia. ABSENT: diastolic murmur, systolic murmur GI/Abdominal exam: PRESENT: normal bowel sounds, soft. ABSENT: distended, guarding, mass, organolmegaly, rebound, tenderness Musculoskeletal exam: PRESENT: ambulatory Neurological exam: PRESENT: alert, awake Psychiatric exam: PRESENT: appropriate affect, normal mood Skin exam: PRESENT: dry, intact, warm Results Laboratory Results: 08/11/19 11:40 08/14/19 03:49 08/11/19 08/11/19 08/11/19 11:40 11:40 15:30 Creatine Kinase 57 CK-MB (CK-2) 0.65 Troponin I < 0.012 < 0.012 Assessment and Plan - Diagnosis (1) Atrial flutter with rapid ventricular response Is this a current diagnosis for this admission?: Yes Plan: PER SKIN CARE INSTRUCTOR: "Medications held include digoxin and metoprolol adjusted. Digoxin load to complete today. He is written for transfer to tele floor. When a regimen is decided that will preserved BP without symptoms and control rate will discharge home. HR gets out f control with walking." -Heart rate still elevated occasionally up to the 130s outpatient is not currently symptomatic -has not had any syncope recently -metoprolol alone per cardiology Diltiazem low-dose started 08/17, reassessing for presyncope/syncope (2) BPH (benign prostatic hyperplasia) Qualifiers: Lower urinary tract symptom presence: symptoms present Lower urinary tract symptom detail: weak urinary stream Qualified Code(s): N40.1 - Benign prostatic hyperplasia with lower urinary tract symptoms; R39.12 - Poor urinary stream Is this a current diagnosis for this admission?: Yes (3) Alcoholism in recovery Is this a current diagnosis for this admission?: Yes (4) Atrial fibrillation Qualifiers: Atrial fibrillation type: unspecified Qualified Code(s): I48.91 - Unspecified atrial fibrillation Is this a current diagnosis for this admission?: Yes Plan: Needs ablation at [facility], to be arranged outpatient per cardiology Patient also follows with [facility] (5) Chronic anticoagulation Is this a current diagnosis for this admission?: Yes (6) Hypertension Qualifiers: Hypertension type: essential hypertension Qualified Code(s): I10 - Essential (primary) hypertension Is this a current diagnosis for this admission?: Yes (7) Syncope Qualifiers: Syncope type: unspecified Qualified Code(s): R55 - Syncope and collapse Is this a current diagnosis for this admission?: Yes - Time Time Spent with patient: 25-34 minutes Anticipated discharge: Home Within: within 48 hours
[2019-08-17] MEDS: DILTIAZEM HCL 30 MG TABLET PO SCH ×2 (18:00→23:40)
[2019-08-18] MEDS: GABAPENTIN 300 MG CAPSULE PO SCH ×3 (05:14→21:12)
[2019-08-18] MEDS: DILTIAZEM HCL 30 MG TABLET PO SCH ×3 (05:14→18:39)
[2019-08-18] MEDS: TAMSULOSIN HCL 0.4 MG CAP.SR.24H PO SCH (10:03)
[2019-08-18] MEDS: CHOLECALCIFEROL (D3) 1,000 UNIT (25 MCG) TABLET PO SCH (10:03)
[2019-08-18] MEDS: APIXABAN 5 MG TABLET PO SCH ×2 (10:03→21:12)
[2019-08-18] MEDS: METOPROLOL TARTRATE 50 MG TABLET PO SCH ×2 (10:04→21:12)
--- NOTE | 2019-08-18 17:25 | PDOC PROGRESS REPORT ---
Subjective Progress Note for:: 08/18/19 Subjective:: Patient is a 54-year-old -Gambian male admitted for recurrent syncopal events in the setting of acute atrial flutter/fib. Patient was initially admitted to ICU but stabilized and later transferred out to general medical floor though his heart rate has been persistently difficult to control often jumping up to the 130s at times. 08/16: Symptomatically patient appears to be improved though he is understandably concerned that he may continue having syncopal episodes. We discussed at length that he should not be driving and he states he has not driven in years anyway. He very likely needs an ablation which will need to be done at a tertiary facility I suspect. No new complaints. 08/17: Patient's heart rate continues to be uncontrolled 130s. There have been no medication changes per the cardiology note but he did suggest potentially trying diltiazem. Patient has not experienced any syncope since being admitted but he did have some presyncope while he was still in the ICU. This occurred when he was given digoxin and the medication was subsequently discontinued. We will try diltiazem low-dose every 6 hours and reassess if his heart rate imp roves or if he becomes presyncopal again. If he becomes syncopal or presyncopal while we are titrating this diltiazem to reach her heart rate goal of 110 or less, I will promptly transfer him to [facility] to have a more expeditious ablation which she certainly needs. I do not believe he would be safe to leave the hospital with a markedly elevated heart rate or if he is syncopal/presyncopal. Patient is in full agreement with this plan. 08/18: Heart rate was much better overnight since starting diltiazem however this afternoon it spiked again to the 120s. Diltiazem was again increased. Patient denies any dizziness or syncope/presyncope would suggest we can continue up titrating his oral diltiazem until we control his heart rate. No new complaints per patient states he feels very well overall. Reason For Visit: ATRIAL FLUTTER AND SYNCOPE Physical Exam Vital Signs: Temp Pulse Resp BP Pulse Ox 97.7 F 138 H 18 108/69 98 08/18/19 15:11 08/18/19 15:11 08/18/19 15:11 08/18/19 15:11 08/18/19 15:11 Intake & Output 08/17/19 08/18/19 08/19/19 06:59 06:59 06:59 Intake Total 1340 2232 525 Output Total 1525 5875 700 Balance -185 -193 -175 Weight 95.3 kg 93.5 kg General appearance: PRESENT: no acute distress, well-developed, well-nourished Head exam: PRESENT: atraumatic, normocephalic Eye exam: PRESENT: conjunctiva pink Respiratory exam: PRESENT: clear to auscultation [place]. ABSENT: rales, rhonchi, wheezes Cardiovascular exam: PRESENT: irregular rhythm, tachycardia. ABSENT: diastolic murmur, systolic murmur GI/Abdominal exam: PRESENT: normal bowel sounds, soft. ABSENT: distended, guarding, mass, organolmegaly, rebound, tenderness Extremities exam: ABSENT: pedal edema Neurological exam: PRESENT: alert, awake Psychiatric exam: PRESENT: appropriate affect, normal mood Skin exam: PRESENT: dry, intact, warm Results Laboratory Results: 08/11/19 11:40 08/14/19 03:49 08/11/19 08/11/19 08/11/19 11:40 11:40 15:30 Creatine Kinase 57 CK-MB (CK-2) 0.65 Troponin I < 0.012 < 0.012 Assessment and Plan - Diagnosis (1) Atrial flutter with rapid ventricular response Is this a current diagnosis for this admission?: Yes Plan: PER REALTY LOAN SPECIALIST: "Medications held include digoxin and metoprolol adjusted. Digoxin load to complete today. He is written for transfer to tele floor. When a regimen is decided that will preserved BP without symptoms and control rate will discharge home. HR gets out f control with walking." -Heart rate still elevated occasionally up to the 130s outpatient is not currently symptomatic -has not had any syncope recently -metoprolol alone per cardiology Diltiazem low-dose started 08/17, patient denied any presyncope/syncope, heart rate still uncontrolled and oral diltiazem increased (2) BPH (benign prostatic hyperplasia) Qualifiers: Lower urinary tract symptom presence: symptoms present Lower urinary tract symptom detail: weak urinary stream Qualified Code(s): N40.1 - Benign prostatic hyperplasia with lower urinary tract symptoms; R39.12 - Poor urinary stream Is this a current diagnosis for this admission?: Yes (3) Alcoholism in recovery Is this a current diagnosis for this admission?: Yes (4) Atrial fibrillation Qualifiers: Atrial fibrillation type: unspecified Qualified Code(s): I48.91 - Unspecified atrial fibrillation Is this a current diagnosis for this admission?: Yes (5) Chronic anticoagulation Is this a current diagnosis for this admission?: Yes (6) Hypertension Qualifiers: Hypertension type: essential hypertension Qualified Code(s): I10 - Essential (primary) hypertension Is this a current diagnosis for this admission?: Yes (7) Syncope Qualifiers: Syncope type: unspecified Qualified Code(s): R55 - Syncope and collapse Is this a current diagnosis for this admission?: Yes - Time Time Spent with patient: 25-34 minutes Medications reviewed and adjusted accordingly: Yes Anticipated discharge: Home Within: within 24 hours - Inpatient Certification Medical Necessity: Significant Comorbidiites Make Outpatient Treatment Too Risky, Need Close Monitoring Due to Risk of Patient Decompensation
[2019-08-19] MEDS: DILTIAZEM HCL 30 MG TABLET PO SCH ×3 (00:54→12:49)
[2019-08-19] MEDS: GABAPENTIN 300 MG CAPSULE PO SCH ×2 (05:50→13:32)
[2019-08-19] MEDS: CHOLECALCIFEROL (D3) 1,000 UNIT (25 MCG) TABLET PO SCH (09:50)
[2019-08-19] MEDS: APIXABAN 5 MG TABLET PO SCH (09:50)
[2019-08-19] MEDS: METOPROLOL TARTRATE 50 MG TABLET PO SCH (09:50)
[2019-08-19] MEDS: TAMSULOSIN HCL 0.4 MG CAP.SR.24H PO SCH (09:50)
[2019-08-19 13:55] VITALS: BP 100/66
--- NOTE | 2019-08-19 14:09 | PDOC DISCHARGE SUMMARY ---
Impression - Admit/DC Date/PCP Admission Date/Primary Care Provider: 08/11/19 19:[facility] Discharge Date: 08/19/19 - Discharge Diagnosis (1) Atrial flutter with rapid ventricular response Is this a current diagnosis for this admission?: Yes (2) BPH (benign prostatic hyperplasia) Is this a current diagnosis for this admission?: Yes (3) Alcoholism in recovery Is this a current diagnosis for this admission?: Yes (4) Atrial fibrillation Is this a current diagnosis for this admission?: Yes (5) Chronic anticoagulation Is this a current diagnosis for this admission?: Yes (6) Hypertension Is this a current diagnosis for this admission?: Yes (7) Syncope Is this a current diagnosis for this admission?: Yes - Additional Information Resuscitation Status: Full Code Discharge Diet: Cardiac Discharge Activity: Activity As Tolerated [facility]errals: [facility] [[facility]] - Follow up as needed Prescriptions: Diltiazem HCl [Diltiazem 24Hr ER] 240 mg PO QHS #30 cap.sa.24h Gabapentin [Neurontin 300 mg Capsule] 300 mg PO Q8 #21 capsule Home Medications: Apixaban [Eliquis 5 mg Tablet] 5 mg PO Q12 08/03/19 Cholecalciferol (Vitamin D3) [Vitamin D3 1000 Unit Tablet] 2,000 mg PO DAILY 08/03/19 Metoprolol Tartrate [Lopressor 100 mg Tablet] 100 mg PO Q12 08/03/19 Naltrexone Microspheres [Vivitrol] 380 mg IM .QMONTHLY 08/03/19 Tamsulosin HCl [Flomax 0.4 mg Cap.sr] 0.4 mg PO DAILY 08/03/19 Diltiazem HCl [Diltiazem 24Hr ER] 240 mg PO QHS #30 cap.sa.24h 08/19/19 Gabapentin [Neurontin 300 mg Capsule] 300 mg PO Q8 #21 capsule 08/19/19 History of Present Illiness History of Present Illness: Patient is a 54-year-old -[place]ir[place] male admitted for recurrent syncopal events in the setting of acute atrial flutter/fib. Patient was initially admitted to ICU but stabilized and later transferred out to general medical floor though his heart rate has been persistently difficult to control often jumping up to the 130s at times. Patient had pre-syncopal event in ICU when given digoxin which was discontinued. Hospital Course Hospital Course: Patient is a 54-year-old -Emir[place] male admitted for recurrent syncopal events in the setting of acute atrial flutter/fib. Patient was initially admitted to ICU but stabilized and later transferred out to general medical floor though his heart rate has been persistently difficult to control often jumping up to the 130s at times. Patient had pre-syncopal event in ICU when given digoxin which was discontinued. 08/16: Symptomatically patient appears to be improved though he is understandably concerned that he may continue having syncopal episodes. We discussed at length that he should not be driving and he states he has not driven in years anyway. He very likely needs an ablation which will need to be done at a tertiary facility I suspect. No new complaints. 08/17: Patient's heart rate continues to be uncontrolled 130s. There have been no medication changes per the cardiology note but he did suggest potentially trying diltiazem. Patient has not experienced any syncope since being admitted but he did have some presyncope while he was still in the ICU. This occurred when he was given digoxin and the medication was subsequently discontinued. We will try diltiazem low-dose every 6 hours and reassess if his heart rate im proves or if he becomes presyncopal again. If he becomes syncopal or presyncopal while we are titrating this diltiazem to reach her heart rate goal of 110 or less, I will promptly transfer him to [facility] to have a more expeditious ablation which she certainly needs. I do not believe he would be safe to leave the hospital with a markedly elevated heart rate or if he is syncopal/presyncopal. Patient is in full agreement with this plan. 08/18: Heart rate was much better overnight since starting diltiazem however this afternoon it spiked again to the 120s. Diltiazem was again increased. Patient denies any dizziness or syncope/presyncope would suggest we can continue up titrating his oral diltiazem until we control his heart rate. No new complaints per patient states he feels very well overall. 08/19: tolerated higher dose diltiazem very well. LLN BP but asymptomatic even when ambulating. HR consistently in 70's and 80's. Feels well and wanted to be DC. Physical Exam Vital Signs: Temp Pulse Resp BP Pulse Ox 98.2 F 97 16 100/66 97 08/19/19 13:53 08/19/19 13:53 08/19/19 13:53 08/19/19 13:53 08/19/19 13:53 Intake & Output 08/18/19 08/19/19 08/20/19 06:59 06:59 06:59 Intake Total 2232 1775 Output Total 6272 3795 Balance -193 -400 Weight 93.5 kg 92.7 kg General appearance: PRESENT: no acute distress, well-developed, well-nourished Head exam: PRESENT: atraumatic, normocephalic Eye exam: PRESENT: conjunctiva pink Mouth exam: PRESENT: moist Respiratory exam: PRESENT: clear to auscultation [place]. ABSENT: rales, rhonchi, wheezes Cardiovascular exam: PRESENT: irregular rhythm. ABSENT: diastolic murmur, systolic murmur, tachycardia GI/Abdominal exam: PRESENT: normal bowel sounds, soft. ABSENT: distended, guarding, mass, organolmegaly, rebound, tenderness Musculoskeletal exam: PRESENT: ambulatory Neurological exam: PRESENT: alert, awake Psychiatric exam: PRESENT: appropriate affect, normal mood Skin exam: PRESENT: dry, intact, warm Results Laboratory Results: WBC 7.9 10^3/uL (4.0-10.5) 08/11/19 11:40 RBC 5.31 10^6/uL (4.35-5.55) 08/11/19 11:40 Hgb 14.4 g/dL (13.5-17.0) 08/11/19 11:40 Hct 41.8 % (37.9-51.0) 08/11/19 11:40 MCV 79 fl (80-97) L 08/11/19 11:40 MCH 27.1 pg (27.0-33.4) 08/11/19 11:40 MCHC 34.4 g/dL (32.0-36.0) 08/11/19 11:40 RDW 16.1 % (11.5-14.0) H 08/11/19 11:40 Plt Count 420 10^3/uL (150-450) 08/11/19 11:40 Lymph % (Auto) 20.8 % (13-45) 08/11/19 11:40 Eddy % (Auto) 8.6 % (3-13) 08/11/19 11:40 Eos % (Auto) 10.3 % (0-6) H 08/11/19 11:40 Baso % (Auto) 0.5 % (0-2) 08/11/19 11:40 Absolute Neuts (auto) 4.7 10^3/uL (1.7-8.2) 08/11/19 11:40 Absolute Lymphs (auto) 1.6 10^3/uL (0.5-4.7) 08/11/19 11:40 Absolute Monos (auto) 0.7 10^3/uL (0.1-1.4) 08/11/19 11:40 Absolute Eos (auto) 0.8 10^3/uL (0.0-0.6) H 08/11/19 11:40 Absolute Basos (auto) 0.0 10^3/uL (0.0-0.2) 08/11/19 11:40 Seg Neutrophils % 59.8 % (42-78) 08/11/19 11:40 PT 15.6 SEC (11.4-15.4) H 08/12/19 03:47 INR 1.23 08/12/19 03:47 APTT 40.6 SEC (23.5-35.8) H 08/12/19 03:47 Sodium 139.3 mmol/L (137-145) 08/14/19 03:49 Potassium 4.2 mmol/L (3.6-5.0) 08/14/19 03:49 Chloride 104 mmol/L (98-107) 08/14/19 03:49 Carbon Dioxide 28 mmol/L (22-30) 08/14/19 03:49 Anion Gap 7 (5-19) 08/14/19 03:49 BUN 13 mg/dL (7-20) 08/14/19 03:49 Creatinine 0.80 mg/dL (0.52-1.25) 08/14/19 03:49 Est GFR ( Amer) > 60 (>60) 08/14/19 03:49 Est GFR (MDRD) Non-Af > 60 (>60) 08/14/19 03:49 Glucose 95 mg/dL (75-110) 08/14/19 03:49 Calcium 9.9 mg/dL (8.4-10.2) 08/14/19 03:49 Phosphorus 4.7 mg/dL (2.5-4.5) H 08/14/19 03:49 Magnesium 2.3 mg/dL (1.6-2.3) 08/15/19 03:46 Total Bilirubin 0.6 mg/dL (0.2-1.3) 08/11/19 11:40 Direct Bilirubin 0.2 mg/dL (0.0-0.4) 08/11/19 11:40 Neonat Total Bilirubin Not Reportable 08/11/19 11:40 Neonat Direct Bilirubin Not Reportable 08/11/19 11:40 Neonat Indirect Bili Not Reportable 08/11/19 11:40 AST 27 U/L (17-59) 08/11/19 11:40 ALT 27 U/L (<50) 08/11/19 11:40 Alkaline Phosphatase 90 U/L (38-126) 08/11/19 11:40 Creatine Kinase 57 U/L (55-170) 08/11/19 11:40 CK-MB (CK-2) 0.65 ng/mL (<4.55) 08/11/19 11:40 Troponin I < 0.012 ng/mL 08/11/19 15:30 Total Protein 8.1 g/dL (6.3-8.2) 08/11/19 11:40 Albumin 4.5 g/dL (3.5-5.0) 08/11/19 11:40 TSH 0.28 uIU/mL (0.47-4.68) L 08/11/19 11:40 Free T4 1.17 ng/dL (0.78-2.19) 08/11/19 11:40 Free T3 pg/mL 3.29 pg/mL (2.77-5.27) 08/11/19 11:40 Urine Color YELLOW 08/11/19 22:25 Urine Appearance CLEAR 08/11/19 22:25 Urine pH 6.0 (5.0-9.0) 08/11/19 22:25 Ur Specific [place] 1.018 08/11/19 22:25 Urine Protein NEGATIVE mg/dL (NEGATIVE) 08/11/19 22:25 Urine Glucose (UA) NEGATIVE mg/dL (NEGATIVE) 08/11/19 22:25 Urine Ketones NEGATIVE mg/dL (NEGATIVE) 08/11/19 22:25 Urine Blood NEGATIVE (NEGATIVE) 08/11/19 22:25 Urine Nitrite NEGATIVE (NEGATIVE) 08/11/19 22:25 Urine Bilirubin NEGATIVE (NEGATIVE) 08/11/19 22:25 Urine Urobilinogen 4.0 mg/dL (<2.0) H 08/11/19 22:25 Ur Leukocyte Esterase NEGATIVE (NEGATIVE) 08/11/19 22:25 Urine WBC (Auto) 1 /HPF 08/11/19 22:25 U Hyaline Cast (Auto) 1 /LPF 08/11/19 22:25 Urine Mucus (Auto) RARE /LPF 08/11/19 22:25 Urine Ascorbic Acid NEGATIVE (NEGATIVE) 08/11/19 22:25 08/11/19 08/11/19 11:40 15:30 CK-MB (CK-2) 0.65 Troponin I < 0.012 < 0.012 Plan Time Spent: Greater than 30 Minutes Stroke Is this a Stroke Patient?: No Acute Heart Failure - Is this a Heart Failure Patient?: No 3. Anticoagulant therapy for permanect/persistent/paraoxysmal Afib or Aflutter: Yes Follow-up Appointment scheduled within 7 days?: Yes
== END 2019-08-19 14:10 | disposition home or self-care (01) | DRG 310 ==
LOC: ER 11:24 → EH 17:33 → ICU 18:15 → OBSVTOIN 19:00 → 3S 08-15 17:37
PROVIDERS: ADMIT Surgery; ATTEND Surgery
DX: I48.92 Unspecified atrial flutter (principal); I48.20 Chronic atrial fibrillation, unspecified; R55 Syncope and collapse; N40.1 Benign prostatic hyperplasia with lower urinary tract symptoms; R39.12 Poor urinary stream; F10.21 Alcohol dependence, in remission; Z79.02 Long term (current) use of antithrombotics/antiplatelets; R00.1 Bradycardia, unspecified; T46.0X5A Adverse effect of cardiac-stimulant glycosides and drugs of similar action, initial encounter; Y92.230 Patient room in hospital as the place of occurrence of the external cause; Z79.899 Other long term (current) drug therapy
CPT/HCPCS: 36415; 80048; 80053; 81001; 82550; 82553; 83735; 84100; 84439; 84443; 84481; 84484; 85025; 85610; 85730; 93005; 93010; 96365; 96366; 96375; 96376; 99231; 99285; 99291; J1160; J1650; J3475; J3490; J7030; J7120; S0119

== ENCOUNTER 2019-10-10 13:41 | Day surgery (SDC) | payer OTHER ==
[2019-10-10] MEDS ORDERED: PROPOFOL INJ 200 MG/20 ML VIAL IV ONE ×2 (14:12→15:15)
[2019-10-10 15:24] LABS: HEMATOCRIT 35.2 % (37.9-51.0); HEMOGLOBIN 12.3 g/dL (13.5-17.0); MEAN CORPUSCULAR HEMOGLOBIN 27.1 pg (27.0-33.4); MEAN CORPUSCULAR HGB CONC 34.9 g/dL (32.0-36.0); MEAN CORPUSCULAR VOLUME 78 fl (80-97); PLATELET COUNT 336 10^3/uL (150-450); RED BLOOD COUNT 4.53 10^6/uL (4.35-5.55); RED CELL DISTRIBUTION WIDTH 15.9 % (11.5-14.0); WHITE BLOOD COUNT 6.7 10^3/uL (4.0-10.5)
[2019-10-10 15:46] LABS: ANION GAP 6 (5-19); BLOOD UREA NITROGEN 10 mg/dL (7-20); CALCIUM 9.6 mg/dL (8.4-10.2); CARBON DIOXIDE 28 mmol/L (22-30); CHLORIDE 105 mmol/L (98-107); GLUCOSE 91 mg/dL (75-110); POTASSIUM 4.3 mmol/L (3.6-5.0)
--- NOTE | 2019-10-10 15:46 | PDOC CONSULTATION ---
Consultation Consult Date: 10/10/19 Attending physician:: KELL FAITH Provider Consulted: KELL FAITH Consult reason:: Atrial fibrillation History of Present Illness Admission Date/PCP: [facility] Patient complains of: Palpitations History of Present Illness: [facility] is a 54 year old male with 1. Persistent atrial flutter s/p CTI ablation 09/29/2019 2. CHF He presented to the office and was found to be in atrial fibrillation with RVR. Symptomatically he feels better though. Past Medical History Cardiac Medical History: Reports: Atrial Fibrillation, Hypertension Denies: Congestive Heart Failure, Coronary Artery Disease, Myocardial Infarction, Hyperlipidema Pulmonary Medical History: Denies: Asthma, Bronchitis, Chronic Obstructive Pulmonary Disease (COPD), Pneumonia Neurological Medical History: Denies: Seizures Endocrine Medical History: Denies: Diabetes Mellitus Type 1, Diabetes Mellitus Type 2, Hyperthyroidism, Hypothyroidism GI Medical History: Denies: Cirrhosis, Crohn's Disease, Gastroesophageal Reflux Disease, Hepatitis, Ulcerative Colitis Musculoskeltal Medical History: Denies: Arthritis, Gout Skin Medical History: Denies: Eczema, Psoriasis Hematology: Denies: Anemia, Bleeding Tendencies Past Surgical History Past Surgical History: Reports: Other - Colonoscopy Social History Smoking Status: Never Smoker Electronic Cigarette use?: No Frequency of Alcohol Use: None Hx Recreational Drug Use: No Drugs: None Hx Prescription Drug Abuse: No Family History Family History: Other - Brother and Aunt both with atrial flutter Parental Family History Reviewed: No - No familial illnesses Children Family History Reviewed: NA Sibling(s) Family History Reviewed.: NA Medication/Allergy Home Medications: Apixaban [Eliquis 5 mg Tablet] 5 mg PO Q12 08/03/19 Cholecalciferol (Vitamin D3) [Vitamin D3 1000 Unit Tablet] 2,000 mg PO DAILY 08/03/19 Metoprolol Tartrate [Lopressor 100 mg Tablet] 100 mg PO Q12 08/03/19 Naltrexone Microspheres [Vivitrol] 380 mg IM .QMONTHLY 08/03/19 Tamsulosin HCl [Flomax 0.4 mg Cap.sr] 0.4 mg PO DAILY 08/03/19 Diltiazem HCl [Diltiazem 24Hr ER] 240 mg PO QHS #30 cap.sa.24h 08/19/19 Gabapentin [Neurontin 300 mg Capsule] 300 mg PO Q8 #21 capsule 08/19/19 Allergies/Adverse Reactions: No Known Allergies Allergy (Unverified 11/05/15 13:29) Physical Exam Vital Signs: Temp Pulse Resp BP Pulse Ox 97.9 F 61 18 143/96 H 100 10/10/19 14:15 10/10/19 14:15 10/10/19 14:15 10/10/19 14:15 10/10/19 14:15 Intake & Output 10/09/19 10/10/19 10/11/19 06:59 06:59 06:59 Intake Total 0 Balance 0 Weight 98.18 kg General appearance: PRESENT: no acute distress, cooperative Head exam: PRESENT: atraumatic, normocephalic Eye exam: PRESENT: conjunctiva pink, EOMI Mouth exam: PRESENT: moist Respiratory exam: PRESENT: clear to auscultation [place], symmetrical, unlabored Cardiovascular exam: PRESENT: irregular rhythm, +S1, +S2, tachycardia Pulses: PRESENT: normal radial pulses GI/Abdominal exam: PRESENT: soft Rectal exam: PRESENT: deferred Neurological exam: PRESENT: alert, awake, oriented to person, oriented to place, oriented to time, oriented to situation Psychiatric exam: PRESENT: appropriate affect Skin exam: PRESENT: dry, intact Results Laboratory Results: 10/10/19 15:09 Seg Neutrophils % Not Reportable EKG Comments: Afib RVR 141 bpm Assessment & Plan - Diagnosis (1) Atrial flutter with rapid ventricular response Is this a current diagnosis for this admission?: Yes Plan: Has been on uninterrupted Apixaban therapy for the last 3 months-no doses missed. Affirmed with patient Will proceed with Direct current cardioversion. Risks include skin person, other arrhythmias and stroke. Patient understands.
--- NOTE | 2019-10-10 15:54 | Discharge Summary ---
Discharge Summary (SDC) - Discharge Final Diagnosis: Atrial fibrillation rapid ventricular response Direct-current cardioversion with roman catholic of sinus rhythm Condition: Stable [facility]errals: [facility] [[facility]] - Discharge Diet: Cardiac Discharge Activity: Activity As Tolerated Report the Following to Your Physician Immediately: Shortness of Breath - Outpatient follow-up will be arranged.
[2019-10-10 16:03] LABS: ABSOLUTE LYMPHOCYTES# (MANUAL) 2.7 10^3/uL (0.5-4.7); ABSOLUTE MONOCYTES # (MANUAL) 0.5 10^3/uL (0.1-1.4); BASOPHILS % (MANUAL) 0 % (0-2); EOSINOPHILS % (MANUAL) 23 % (0-6); LYMPHOCYTES % (MANUAL) 40 % (13-45); MONOCYTES % (MANUAL) 7 % (3-13); SEGMENTED NEUTROPHILS % (MAN) 29 % (42-78); TOTAL CELLS COUNTED 100
[2019-10-10 16:06] LABS: ANISOCYTOSIS SLIGHT; PLATELET COMMENT ADEQUATE; POIKILOCYTOSIS SLIGHT; TARGET CELLS SLIGHT
[2019-10-10 17:36] VITALS: BP 146/108
--- NOTE | 2019-10-10 21:40 | EKG REPORT ---
SEVERITY:- ABNORMAL ECG - ATRIAL FIBRILLATION, V-RATE 86-169 BORDERLINE PROLONGED QT INTERVAL : Confirmed by: Nani Kendrick MD 10-Oct-2019 21:40:10
--- NOTE | 2019-10-10 21:41 | EKG REPORT ---
SEVERITY:- BORDERLINE ECG - SINUS RHYTHM BORDERLINE PROLONGED QT INTERVAL : Confirmed by: Nani Kendrick MD 10-Oct-2019 21:40:13
== END 2019-10-10 17:25 | disposition home or self-care (01) ==
LOC: END 13:41
PROVIDERS: ATTEND Internal Medicine
DX: I48.0 Paroxysmal atrial fibrillation (principal); R94.31 Abnormal electrocardiogram [ECG] [EKG]; I11.0 Hypertensive heart disease with heart failure; I50.9 Heart failure, unspecified; Z79.01 Long term (current) use of anticoagulants
CPT/HCPCS: 36415; 85025; 80048; 93005; 93010; 00410; J2704; 410

== ENCOUNTER 2020-01-04 10:28 | Day surgery (SDC) | payer OTHER ==
[~2020-01-04 10:28] MED LIST: LACTATED RINGERS 1000 ML IV PRN; LIDOCAINE 0.5% INJ-PF (5 MG/ML) 50 ML SDV SUBCUT PRN
[2020-01-04 12:04] LABS: INTERNATIONAL RATION (INR) 1.14; PROTHROMBIN TIME 14.7 SEC (11.4-15.4)
[2020-01-04 12:05] LABS: PARTIAL THROMBOPLASTIN TIME 35.7 SEC (23.5-35.8)
[2020-01-04] MEDS ORDERED: PROPOFOL INJ 200 MG/20 ML VIAL IV ONE (13:29)
--- NOTE | 2020-01-04 13:59 | PDOC CONSULTATION ---
Consultation Consult Date: 01/04/20 Attending physician:: KELL FAITH Provider Consulted: KELL FAITH Consult reason:: Atrial fibrillation History of Present Illness Admission Date/PCP: [facility] Patient complains of: Palpitations History of Present Illness: [place] RO[place]AL is a 54 year old male with the following problems. 1. Atrial flutter[CVTI ablation 09/2019) 2. Atrial fibrillation 3. Systemic hypertension 4. Systemic anticoagulation-Apixaban He came back to the office with rate controlled atrial fibrillation. We decided to repeat DCCV. He has been on uninterrupted systemic anticoagulation and has not missed any doses of Apixaban Past Medical History Cardiac Medical History: Reports: Atrial Fibrillation, Hypertension Denies: Congestive Heart Failure, Coronary Artery Disease, Myocardial Infarction, Hyperlipidema Pulmonary Medical History: Denies: Asthma, Bronchitis, Chronic Obstructive Pulmonary Disease (COPD), Pneumonia Neurological Medical History: Denies: Seizures Endocrine Medical History: Denies: Diabetes Mellitus Type 1, Diabetes Mellitus Type 2, Hyperthyroidism, Hypothyroidism GI Medical History: Denies: Cirrhosis, Crohn's Disease, Gastroesophageal Reflux Disease, H epatitis, Ulcerative Colitis Musculoskeltal Medical History: Denies: Arthritis, Gout Skin Medical History: Denies: Eczema, Psoriasis Hematology: Denies: Anemia, Bleeding Tendencies Past Surgical History Past Surgical History: Reports: Other - Colonoscopy Social History Smoking Status: Never Smoker Frequency of Alcohol Use: None Hx Recreational Drug Use: No Drugs: None Hx Prescription Drug Abuse: No Family History Family History: Other - Brother and Aunt both with atrial flutter Parental Family History Reviewed: Yes - No familiail illnesses Children Family History Reviewed: NA Sibling(s) Family History Reviewed.: NA Medication/Allergy Home Medications: Apixaban [Eliquis 5 mg Tablet] 5 mg PO Q12 08/03/19 Cholecalciferol (Vitamin D3) [Vitamin D3 1000 Unit Tablet] 2,000 mg PO DAILY 08/03/19 Metoprolol Tartrate [Lopressor 100 mg Tablet] 100 mg PO Q12 08/03/19 Naltrexone Microspheres [Vivitrol] 380 mg IM .QMONTHLY 08/03/19 Tamsulosin HCl [Flomax 0.4 mg Cap.sr] 0.4 mg PO DAILY 08/03/19 Diltiazem HCl [Diltiazem 24Hr ER] 240 mg PO QHS #30 cap.sa.24h 08/19/19 Gabapentin [Neurontin 300 mg Capsule] 300 mg PO Q8 #21 capsule 08/19/19 Digoxin [Lanoxin 0.125 mg Tablet] 0.125 mg PO DAILY 01/04/20 Allergies/Adverse Reactions: pollen extracts Allergy (Severe, Verified 01/02/20 10:58) Review of Systems Nose, Mouth, and Throat: PRESENT: as per HPI Breasts: PRESENT: as per HPI Cardiovascular: PRESENT: as per HPI, palpitations Respiratory: PRESENT: as per HPI Physical Exam Vital Signs: Temp Pulse Resp BP Pulse Ox 98.3 F 87 18 135/90 H 100 01/04/20 11:36 01/04/20 11:36 01/04/20 11:36 01/04/20 11:36 01/04/20 11:36 Intake & Output 01/03/20 01/04/20 01/05/20 06:59 06:59 06:59 Intake Total 0 Balance 0 Weight 94.35 kg 94.35 kg General appearance: PRESENT: no acute distress, cooperative, well-developed, well-nourished Head exam: PRESENT: atraumatic, normocephalic Eye exam: PRESENT: conjunctiva pink, EOMI Respiratory exam: PRESENT: symmetrical, unlabored Cardiovascular exam: PRESENT: irregular rhythm, +S1, +S2 Pulses: PRESENT: normal radial pulses GI/Abdominal exam: PRESENT: soft Rectal exam: PRESENT: deferred Neurological exam: PRESENT: alert, awake, oriented to person, oriented to place, oriented to time, oriented to situation Psychiatric exam: PRESENT: appropriate affect Skin exam: PRESENT: dry, intact Assessment & Plan - Diagnosis (1) Atrial fibrillation Qualifiers: Atrial fibrillation type: other persistent Qualified Code(s): I48.19 - Other persistent atrial fibrillation Is this a current diagnosis for this admission?: Yes Plan: Has been on uninterrupted systemic anticoagulation with Apixaban. I have confirmed verbally with patient that he has not missed any doses Rate controlled. Based on our discussion we decided to proceed with DCCV. (2) Atrial flutter with rapid ventricular response Is this a current diagnosis for this admission?: No Plan: S/p CVTI ablation. - Notes Notes: DCCV
--- NOTE | 2020-01-04 14:02 | Progress Note ---
Provider Note Provider Note: DIRECT CURRENT CARDIOVERSION Date : 01/04/2020 Procedure: Direct current cardioversion Anesthesia: General anesthesia Indication: Atrial fibrillation Clinical history: 54-year-old male with persistent atrial flutter who is status post catheter ablation for atrial flutter. He presented to the office and was found to be in atrial fibrillation. Because of this we decided to proceed with direct-current cardioversion. Patient has been fully anticoagulated without any interruption in therapy for over 3 months. Because of this a transesophageal echocardiogram was not performed. Of note cardioversion had been performed earlier and was successful. PROCEDURE The patient was brought to the holding area fasting and non-sedated state. Informed consent was obtained prior to the procedure. General anesthesia was administered. Please see anesthesia notes for medication details. Patient's presenting rhythm was atrial fibrillation with rapid ventricular response. The patient's EKG and vital signs were monitored throughout. Once the patient was comfortably sedated a single direct current bi-phasic 200 J sh ock was administered across defibrillator patches applied in german-posterior fashion across the chest. This resulted in prompt restorationism of sinus rhythm with frequent premature atrial complexes. The patient tolerated the procedure well. Conclusion Successful conversion of atrial fibrillation to sinus rhythm Plan Continue systemic anticoagulation-apixaban 5 mg twice daily without interruption Continue other medications Will arrnage for appointment to discuss catheter ablation for atrial fibrillation
--- NOTE | 2020-01-04 14:10 | Discharge Summary ---
Discharge Summary (SDC) - Discharge Final Diagnosis: Persistent atrial fibrillation Date of Surgery: 01/04/20 - Cardioversion Discharge Date: 01/04/20 Condition: Stable [facility] - Discharge Diet: Cardiac Discharge Activity: Activity As Tolerated Report the Following to Your Physician Immediately: Shortness of Breath, Swelling - Out patient appointment will be arranged
[2020-01-04 17:49] VITALS: BP 145/99
== END 2020-01-04 15:40 | disposition home or self-care (01) ==
LOC: OROUT 10:28
PROVIDERS: ATTEND Internal Medicine
DX: I48.0 Paroxysmal atrial fibrillation (principal); I48.92 Unspecified atrial flutter; I10 Essential (primary) hypertension; Z79.01 Long term (current) use of anticoagulants; Z79.899 Other long term (current) drug therapy; G47.33 Obstructive sleep apnea (adult) (pediatric); Z03.818 Encounter for observation for suspected exposure to other biological agents ruled out
CPT/HCPCS: 36415; 85610; 85730; 87635; 00410; 93799; J2704; C9803; 410